=== PATIENT | male | born 1950 | race Caucasian/White ===

== ENCOUNTER → 2016-11-20 | Outpatient (CLI) | payer BC ==
[2016-11-20 11:25] LABS: ALT 34 U/L (21-72); AST 17 U/L (17-59); Alkaline Phosphatase 85 U/L (38-126); Anion Gap 12 mmol/L; Blood Urea Nitrogen 20 mg/dL (9-20); Calcium 9.1 mg/dL (8.4-10.2); Carbon Dioxide 30 mmol/L (22-30); Chloride 103 mmol/L (98-107); Cholesterol 167 mg/dL (<200); Glucose 104 mg/dL (74-99); HDL Cholesterol 53 mg/dL (40-60); Magnesium 2.1 mg/dL (1.6-2.3); Non-African American GFR(MDRD) >60 (>60 ml/min/1.73 sqM); Potassium 4.2 mmol/L (3.5-5.1); Sodium 145 mmol/L (137-145); Total Bilirubin 0.5 mg/dL (0.2-1.3); Total Protein 7.2 g/dL (6.3-8.2)
[2016-11-20 11:53] LABS: Prostate Specific Antigen 3.05 ng/mL (0.00-4.00)
== END | disposition home or self-care (01) ==
LOC: LABWHC1 09:09
PROVIDERS: ATTEND Family Medicine
DX: E78.5 Hyperlipidemia, unspecified (principal); E03.9 Hypothyroidism, unspecified
CPT/HCPCS: 36415; 80053; 80061; 83735; 84153; 84439; 84443

== ENCOUNTER → 2018-10-13 | Outpatient (CLI) | payer MEDICARE, OTHER ==
--- NOTE | 2018-10-13 22:31 | MR ---
EXAMINATION TYPE: MR brain wo/w con DATE OF EXAM: 10/13/2018 COMPARISON: MRI brain August 16, 2014. HISTORY: Diplopia TECHNIQUE: Multiplanar, multisequence images of the brain and brainstem is performed without and with IV contras t, utilizing 10 mL intravenous Gadavist . FINDINGS: Diffusion weighted images demonstrate no evidence of a recent infarct or other diffusion ab normality. There is no worrisome extra-axial fluid collection. There is diffuse ventricular and sulc al prominence redemonstrated. There are some scattered foci of T2 hyperintensities again seen through out the white matter bilaterally. Less than 10 scattered lesions are seen. Midline structures redemonstrated empty sella morphology. The craniocervical junction appears within normal limits. Post contrast images demonstrate no abnormal enhancement. The dural venous sinuses a ppear patent. The visualized sinuses are clear and the globes are intact. Nasal septum remains deviat ed to right of midline. IMPRESSION: Mild to moderate diffuse cerebral atrophy and mild chronic small vessel ischemic changes. No suspicious enhancement noted.
== END | disposition home or self-care (01) ==
LOC: RADMRIMAIN 14:25
PROVIDERS: ATTEND Ophthalmology
DX: G31.9 Degenerative disease of nervous system, unspecified (principal); I67.82 Cerebral ischemia
CPT/HCPCS: 70553; A9585

== ENCOUNTER 2020-09-29 11:53 | Emergency (ER) | payer MEDICARE ==
[2020-09-29 12:28] VITALS: RESP 18; TEMP 98.5
[2020-09-29 12:55] LABS: Appearance,Urine Clear (Clear); Bilirubin,Urine Negative (Negative); Blood,Urine Negative (Negative); Color,Urine Yellow; Glucose,Urine (UA) Negative (Negative); Ketones,Urine Negative (Negative); Leukocyte Esterase,Urine Negative (Negative); Nitrite,Urine Negative (Negative); Protein,Urine Negative (Negative); Specific Gravity,Urine 1.017 (1.001-1.035); Urobilinogen,Urine <2.0 mg/dL (<2.0)
--- NOTE | 2020-09-29 13:01 | XR ---
EXAMINATION TYPE: XR lumbar spine 2 or 3V DATE OF EXAM: 09/29/2020 CLINICAL HISTORY: pain TECHNIQUE: Three views of the lumbar spine are submitted. COMPARISON: None. FINDINGS: Curvature convex to the left. Severe multilevel degenerative disc space narrowing greatest at L5-S 1 and at T12-L1. Chronic loss of height L1. Grade 1 anterolisthesis L5 on S1 measuring 8.6 mm. Severe facet joint arthropathy. IMPRESSION: Advanced degenerative changes. Grade 1 anterolisthesis L5 on S1. Chronic loss of height L1.
[2020-09-29] MEDS ORDERED: KETOROLAC 15 MG/ML 1 ML VIAL IM STA (14:35)
[2020-09-29] MEDS ORDERED: ORPHENADRINE 30 MG/ML 2 ML VIAL IM STA (14:35)
--- NOTE | 2020-09-29 14:42 | ED ---
General Adult HPI - General Chief complaint: Back Pain/Injury Stated complaint: Back pain/burning Time Seen by Provider: 09/29/20 14:00 Source: patient, RN notes reviewed, old records reviewed Mode of arrival: wheelchair Limitations: no limitations - History of Present Illness Initial comments: This is a 69-year-old male who presents emergency Department stating that on Wednesday he did a lot more work house painting and putting up shelving. Patient states on Wednesday morning he woke up and he was having some paraspinous pain on the left lower back. Patient states he has no numbness or weakness. Patient denies any urinary continence urinary retention. Patient denies any abdominal pain. Patient denies any pain on the right side. Patient states bending or twisting makes it worse he states if he goes in the hot tub makes it much better. - Related Data Home Medications Medication Instructions Recorded Confirmed Aspirin 81 mg PO DAILY 08/28/13 01/14/14 Metoprolol Succinate [Toprol XL] 50 mg PO DAILY 08/28/13 01/14/14 Simvastatin [Zocor] 20 mg PO HS 08/28/13 01/14/14 Potassium Gluconate [Potassium 99 mg PO DAILY 12/14/13 01/14/14 Gluconate ER] Lisinopril-Hctz 20-25 mg 1 each PO DAILY 01/14/14 01/14/14 [Zestoretic 20-25] Metoprolol Succinate (ER) [Toprol 25 mg PO HS 01/14/14 01/14/14 XL] Previous Rx's Medication Instructions Recorded Levothyroxine Sodium [Synthroid] 137 mcg PO DAILY #0 01/15/14 Cyclobenzaprine [Flexeril] 10 mg PO TID #20 tab 09/29/20 Ketorolac [Toradol] 10 mg PO Q6HR #15 tab 09/29/20 Allergies Allergy/AdvReac Type Severity Reaction Status Date / Time No Known Allergies Allergy Verified 01/14/14 18:19 Review of Systems ROS Statement: Those systems with pertinent positive or pertinent negative responses have been documented in the HPI. ROS Other: All systems not noted in ROS Statement are negative. Past Medical History Past Medical History: Atrial Fibrillation, Hypertension, Prostate Disorder, Thyroid Disorder Additional Past Medical History / Comment(s): FREQUENT PVCS, hypothyroid, genital herpes History of Any Multi-Drug Resistant Organisms: None Reported Past Surgical History: Heart Catheterization With Stent, Orthopedic Surgery, Tonsillectomy Additional Past Surgical History / Comment(s): knee,shoulder, and wrist Past Anesthesia/Blood Transfusion Reactions: No Reported Reaction Date of Last Stent Placement:: 1998 Past Psychological History: No Psychological Hx Reported Past Alcohol Use History: None Reported Past Drug Use History: None Reported - Past Family History Mother Family Medical History: Asthma, COPD, Coronary Artery Disease (CAD), Diabetes Mellitus Additional Family Medical History / Comment(s): at 75yrs old, polyps in colon, colostomy bag Father Family Medical History: Myocardial Infarction ([place]) Additional Family Medical History / Comment(s): with a heart attack General Exam - General Exam Comments Initial Comments: GENERAL: Patient is well-developed and well-nourished. Patient is nontoxic and well- hydrated and is in mild distress. ENT: Neck is soft and supple. No significant lymphadenopathy is noted. Oropharynx is clear. Moist mucous membranes. Neck has full range of motion without eliciting any pain. EYES: The sclera were anicteric and conjunctiva were pink and moist. Extraocular movements were intact and pupils were equal round and reactive to light. Eyelids were unremarkable. ABDOMEN Soft and nontender with normal bowel sounds. SKIN: Skin is clear with no lesions or rashes and otherwise unremarkable. NEUROLOGIC: Patient is alert and oriented x3. Cranial nerves II through XII are grossly intact. Motor and sensory are also intact. Normal speech, volume and content. Symmetrical smile. Straight leg test is negative bilaterally MUSCULOSKELETAL: Normal extremities with adequate strength and full range of motion. Patient has some tenderness in the paraspinous muscles on the lower left back. PSYCHIATRIC: Normal psychiatric evaluation. Limitations: no limitations Course Vital Signs 09/29/20 12:23 Temperature 98.5 F Pulse Rate 61 Respiratory 18 Rate Blood Pressure 163/80 O2 Sat by Pulse 97 Oximetry Medical Decision Making - Medical Decision Making Lumbosacral shows no acute injury. - Lab Data Lab Results 09/29/20 Range/Units 12:34 Urine Color Yellow Urine Appearance Clear (Clear) Urine pH 7.0 (5.0-8.0) Ur Specific [place] 1.017 (1.001-1.035) Urine Protein Negative (Negative) Urine Glucose (UA) Negative (Negative) Urine Ketones Negative (Negative) Urine Blood Negative (Negative) Urine Nitrite Negative (Negative) Urine Bilirubin Negative (Negative) Urine Urobilinogen <2.0 (<2.0) mg/dL Ur Leukocyte Esterase Negative (Negative) Disposition Clinical Impression: Lumbosacral strain Disposition: HOME SELF-CARE Condition: Good Instructions (If sedation given, give patient instructions): Acute Low Back Pain (ED), Low Back Strain (ED) Prescriptions: Cyclobenzaprine [Flexeril] 10 mg PO TID #20 tab Ketorolac [Toradol] 10 mg PO Q6HR #15 tab Is patient prescribed a controlled substance at d/c from ED?: No Referrals: Curtis Camargo DO [Primary Care Provider] - 1-2 days Time of Disposition: 14:41
[2020-09-29 15:04] VITALS: BP 173/93; PULSE 59
== END 2020-09-29 15:02 | disposition home or self-care (01) ==
LOC: EC 11:53
DX: S39.012A Strain of muscle, fascia and tendon of lower back, initial encounter (principal); I10 Essential (primary) hypertension; I48.91 Unspecified atrial fibrillation; E03.9 Hypothyroidism, unspecified; Z79.82 Long term (current) use of aspirin; Z79.1 Long term (current) use of non-steroidal anti-inflammatories (NSAID); Z79.890 Hormone replacement therapy; Z79.899 Other long term (current) drug therapy; Z83.3 Family history of diabetes mellitus; Z82.49 Family history of ischemic heart disease and other diseases of the circulatory system; X50.1XXA Overexertion from prolonged static or awkward postures, initial encounter
CPT/HCPCS: 81003; 72100; 96372 ×2; 99283; J2360; J1885

== ENCOUNTER → 2021-06-19 | Outpatient (CLI) | payer MEDICARE ==
--- NOTE | 2021-06-19 16:01 | US ---
EXAMINATION TYPE: US abdomen complete DATE OF EXAM: 06/19/2021 COMPARISON: NONE CLINICAL HISTORY: 70-year-old male Rt upper quadrant pain R10.11. Intermittent abdomen pain x 6 month s TECHNIQUE: Multiple sonographic images of the abdomen are obtained. FINDINGS: EXAM MEASUREMENTS: Liver Length: 14.8 cm Gallbladder Wall: 0.3 cm CBD: 0.3 cm Spleen: Unable to adequately visualize due to bowel gas shadowing. Right Kidney: 9.3 x 4.2 x 4.8 cm Left Kidney: 11.7 x 5.0 x 5.2 cm Elect Equip Maint Eng notes:Difficult and limited due to patient body habitus Pancreas: limited by overlying midline bowel gas. Most of the body is seen and appears grossly unrem arkable. Liver: Coarse with increased echogenicity. 3.2 x 2.9cm cyst right lobe Gallbladder: wnl Evidence for sonographic Macias's sign: no CBD: visualized portions wnl, limited by overlying bowel gas Spleen: obscured by overlying midline bowel gas Right Kidney: wnl Left Kidney: wnl Upper IVC: wnl Abd Aorta: proximal portion obscured by overlying midline bowel gas, mid and distal portions appear wnl IMPRESSION: 1. Echogenic liver parenchyma. Correlate for hepatic steatosis with LFTs, lipid profile, and patient risk factors. 2. No gallstones or biliary ductal dilatation. 3. Pancreas and spleen obscured by bowel gas and could not be assessed.
== END | disposition home or self-care (01) ==
LOC: RADUSWWP 09:33
PROVIDERS: ATTEND Internal Medicine Gastroenterology
DX: R10.11 Right upper quadrant pain (principal)
CPT/HCPCS: 76700

== ENCOUNTER 2021-08-14 10:41 | Emergency (ER) | payer MEDICARE ==
[2021-08-14 10:52] VITALS: TEMP 98.3
[2021-08-14] MEDS ORDERED: SODIUM CHLORIDE 0.9% 1,000 ML IV STA (11:21)
[2021-08-14] MEDS ORDERED: ONDANSETRON 4 MG/2 ML VIAL IVP STA (11:21)
[2021-08-14] MEDS ORDERED: MORPHINE SULFATE 4 MG/ML SYRINGE IV STA (11:21)
[2021-08-14] MEDS ORDERED: diphenhydrAMINE 50 MG/ML 1 ML VIAL IVP STA (11:21)
[2021-08-14 12:09] LABS: Basophils # (A) 0.1 k/uL (0-0.2); Basophils % (A) 1 %; Eosinophils # (A) 0.2 k/uL (0-0.7); Eosinophils % (A) 1 %; HCT 48.3 % (39.0-53.0); HGB 16.6 gm/dL (13.0-17.5); Lymphocytes % (A) 17 %; MCH 33.5 pg (25.0-35.0); MCHC 34.3 g/dL (31.0-37.0); MCV 97.7 fL (80.0-100.0); Mean Platelet Volume 11.5; Monocytes # (A) 0.8 k/uL (0-1.0); Monocytes % (A) 6 %; Neutrophils # (A) 8.9 k/uL (1.3-7.7); Neutrophils % (A) 73 %; Platelet Count 131 k/uL (150-450); RBC 4.95 m/uL (4.30-5.90); RDW 12.7 % (11.5-15.5); WBC 12.2 k/uL (3.8-10.6)
[2021-08-14 12:30] LABS: Appearance,Urine Clear (Clear); Bilirubin,Urine Negative (Negative); Blood,Urine Negative (Negative); Color,Urine Yellow; Glucose,Urine (UA) Negative (Negative); Ketones,Urine Negative (Negative); Leukocyte Esterase,Urine Negative (Negative); Nitrite,Urine Negative (Negative); PH, Urine 6.5 (5.0-8.0); Protein,Urine Negative (Negative); Specific Gravity,Urine 1.017 (1.001-1.035); Urobilinogen,Urine <2.0 mg/dL (<2.0)
--- NOTE | 2021-08-14 12:48 | XR ---
EXAMINATION TYPE: XR chest 1V portable DATE OF EXAM: 08/14/2021 COMPARISON: Chest x-ray dated 01/14/2014 HISTORY: Abdominal pain TECHNIQUE: Single frontal view of the chest is obtained. FINDINGS: There is no focal air space opacity, pleural effusion, or pneumothorax seen. The cardiac silhouette size is within normal limits. Prominence of the aortic knob is present, the aorta is dense . The osseous structures are intact, there is thoracic spondylosis. IMPRESSION: No acute process. Possible aortic aneurysm.
--- NOTE | 2021-08-14 12:54 | XR ---
KUB HISTORY: Left-sided abdominal pain Frontal KUB and 2 images There is no evident bowel obstruction or pneumoperitoneum. There is a scoliotic curvature of the spin e, thoracic lumbar spondylosis is present. Vascular calcifications are present. Suspect some arthropa thy in the hips. Air-fluid levels without bowel distention noted. Lung bases are remarkable for some questionable increased attenuation at the left costophrenic angle. IMPRESSION: There could be underlying ileus or enteritis, follow-up as indicated. Difficult to exclud e airspace disease at the left costophrenic angle.
--- NOTE | 2021-08-14 13:44 | US ---
EXAMINATION TYPE: US renals and bladder DATE OF EXAM: 08/14/2021 COMPARISON: US 2021 CLINICAL HISTORY: eval for hydronephrosis. Left flank pain x couple weeks EXAM MEASUREMENTS: Right Kidney: 11.2 x 5.0 x 5.3 cm Left Kidney: 12.0 x 5.7 x 4.8 cm Difficult and limited study due to patient body habitus Right Kidney: 2.1cm cystic area medial mid pole, probable extrarenal pelvis is noted. Left Kidney: wnl Bladder: wnl Bilateral Jets seen: yes There is no evidence for hydronephrosis at this point in time. No nephrolithiasis is seen. Cortical medullary differentiation is maintained. Extrarenal pelvis suspected on the right. No masses are simon ntified. The urinary bladder is anechoic. Inferior impression on the bladder due to the prostate is noted. Bilateral ureteral jets are seen. IMPRESSION: No evident hydronephrosis. 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 Additiona l findings above.
[2021-08-14 13:59] LABS: Albumin 4.4 g/dL (3.5-5.0); Calcium 8.5 mg/dL (8.4-10.2); Potassium 3.5 mmol/L (3.5-5.1); Total Bilirubin 0.5 mg/dL (0.2-1.3); Total Protein 7.4 g/dL (6.3-8.2)
[2021-08-14] MEDS ORDERED: MORPHINE SULFATE 4 MG/ML SYRINGE IVP STA (14:01)
--- NOTE | 2021-08-14 14:14 | ED ---
General Adult HPI - General Chief complaint: Arrhythmia/Palpitations Stated complaint: Back pain/heart flutter Time Seen by Provider: 08/14/21 10:54 Source: patient, RN notes reviewed, old records reviewed Mode of arrival: ambulatory Limitations: no limitations - History of Present Illness Initial comments: Patient is a 70-year-old male with past medical history remarkable for hypertension, prostate disorder, thyroid disorder, atrial fibrillation/flutter who presents emergency Department complaining of persistent left-sided flank pain as well as a feeling of heart palpitations earlier today. States that the palpitations began last night earlier this morning. They have resolved. He is uncertain if it is related to the pain. Denied any chest pain, shortness breath. Currently is not having them. Does endorse some left-sided flank pain which feels a burning sensation that radiates from the left posterior axillary line near the left CVA around to the anterior abdomen. Prescription it is burning. Relieved when pressure is placed on it. Worse when standing. Denies any other acute complaints including nausea, vomiting, diarrhea. Denies any urinary complaints. Is uncertain what is causing his current pain. Was seen by PCP and started on muscle relaxers and steroids with minimal improvement. Presents for further evaluation at this time. Denies any new trauma. Does have a follow-up appointment with Dr. Solano at the end of this month. - Related Data Home Medications Medication Instructions Recorded Confirmed Aspirin 81 mg PO DAILY 08/28/13 01/14/14 Metoprolol Succinate [Toprol XL] 50 mg PO DAILY 08/28/13 01/14/14 Simvastatin [Zocor] 20 mg PO HS 08/28/13 01/14/14 Potassium Gluconate [Potassium 99 mg PO DAILY 12/14/13 01/14/14 Gluconate ER] Lisinopril-Hctz 20-25 mg 1 each PO DAILY 01/14/14 01/14/14 [Zestoretic 20-25] Metoprolol Succinate (ER) [Toprol 25 mg PO HS 01/14/14 01/14/14 XL] Previous Rx's Medication Instructions Recorded Levothyroxine Sodium [Synthroid] 137 mcg PO DAILY #0 01/15/14 Cyclobenzaprine [Flexeril] 10 mg PO TID #20 tab 09/29/20 Ketorolac [Toradol] 10 mg PO Q6HR #15 tab 09/29/20 Gabapentin [Neurontin] 300 mg PO Q8HR PRN 7 Days #21 cap 08/14/21 Lidocaine 5% Patch [Lidoderm 5% 1 patch TOPICAL DAILY PRN 7 Days 08/14/21 Patch] #7 patch methocarbamoL [Robaxin] 1,000 mg PO BID PRN 7 Days #14 tab 08/14/21 Allergies Allergy/AdvReac Type Severity Reaction Status Date / Time No Known Allergies Allergy Verified 08/14/21 10:52 Review of Systems ROS Statement: Those systems with pertinent positive or pertinent negative responses have been documented in the HPI. Review of Systems: CONST: Denies fever EYES: Denies blurry vision ENT: Denies nasal congestion C/V: Denies Chest pain RESP: Denies shortness of breath GI: Endorses right sided flank pain/abdominal pain : Denies dysuria SKIN: Denies rash. MSK: Denies joint pain. NEURO: Denies headache ROS Other: All systems not noted in ROS Statement are negative. Past Medical History Past Medical History: Atrial Fibrillation, Hypertension, Prostate Disorder, Thyroid Disorder Additional Past Medical History / Comment(s): FREQUENT PVCS, hypothyroid, [place] mitra herpes History of Any Multi-Drug Resistant Organisms: None Reported Past Surgical History: Heart Catheterization With Stent, Orthopedic Surgery, T onsillectomy Additional Past Surgical History / Comment(s): knee,shoulder, and wrist Past Anesthesia/Blood Transfusion Reactions: No Reported Reaction Date of Last Stent Placement:: 1998 Past Psychological History: No Psychological Hx Reported Past Alcohol Use History: None Reported Past Drug Use History: None Reported - Past Family History Mother Family Medical History: Asthma, COPD, Coronary Artery Disease (CAD), Diabetes Mellitus Additional Family Medical History / Comment(s): at 75yrs old, polyps in colon, colostomy bag Father Family Medical History: Myocardial Infarction ([place]) Additional Family Medical History / Comment(s): with a heart attack General Exam - General Exam Comments Initial Comments: General: Appears in no acute distress. HEAD: Normal with no signs of head trauma. EYES: PERRLA, EOMI, conjunctiva normal, no discharge. ENT: Hearing grossly intact, normal oropharynx. RESPIRATORY: Clear breath sounds bilaterally. No wheezes, rales, or rhonchi. C/V: Regular rate and rhythm. S1 and S2 auscultated, no edema, peripheral pulses 2+ and intact throughout ABD: Abdomen is soft, nondistended. Mild tenderness to palpation over the left side and left flank. No CVA tenderness to percussion. No guarding. No rebound tenderness. Pain radiates to left mid quadrant. EXT: Normal range of motion, no obvious deformity SKIN: No rashes or lesions observed on exposed skin. NEURO: Alert and oriented x 4. Cranial nerves II-XII intact. No focal sensory or strength deficits. Limitations: no limitations Course Vital Signs 08/14/21 08/14/21 10:48 14:00 Temperature 98.3 F Pulse Rate 83 59 L Respiratory 18 16 Rate Blood Pressure 104/77 117/68 O2 Sat by Pulse 99 95 Oximetry Medical Decision Making - Medical Decision Making Based on the patient's presentation and physical exam, I'm concerned for acute intra-abdominal process for his current symptoms. Also be a muscle strain. The burning sensation as well as the radiation of the pain could be related to a radiculopathy as well. However cannot rule out nephrolithiasis. We will obtain basic laboratory studies to begin as well as an abdominal and chest x-ray and renal ultrasound. He'll be symptomatically treated. Patient was in agreement this plan. EKG shows no signs of acute ischemia. Lab studies are remarkable for a mild leukocytosis of 12.2. Troponin is undetectable. Urine is clear without blood. KUB revealed possible underlying ileus or enteritis, but difficult exam. Chest x-ray reveals no acute process. They documented as possible prominence of the aortic knob but on prior chest x-ray, there is no difference from 2014. I discussed with the patient results of his laboratory studies and imaging. Recommended CT of the pelvis to exclude intra-abdominal process. Patient was in agreement this plan. Was redosed pain medications at this time. Vital signs remained within normal limits and stable. CT revealed left renal cysts, right inguinal hernia containing mesenteric fat, as well as mild fusiform prominence of the distal abdominal aorta at the bifurcation. I discussed the findings with the patient. I informed him of the slight fusiform dilation of the aorta, and recommended repeat imaging outpatient throughout aortic aneurysm. He stressed understanding. Expressed understanding of findings of the cyst as well as the hernia which is known to him. We discussed at length that his symptoms are likely secondary to muscular skeletal in nature. I do not believe he requires admission at this time. Will be given all medications to manage them. Will be trialed on a one-week supply of gabapentin. He was in agreement this plan. Already has follow-up arranged with orthopedic underwriting specialist, Dr. Solano. Patient was in agreement with this plan. Vital signs remained within normal limits at this time. I stressed to him that I am not diagnosing him with a aortic abdominal aneurysm, however we'll provide him with information on it and his discharge paperwork. I will provide the patient with a prescription for Robaxin, lidocaine patches, gabapentin for one week. I instructed the patient to follow up with their PCP in the next 3 days. I explained that the patient should return to the emergency department if they experience any worsening symptoms. Strict return precautions were discussed with the patient. The patient expressed understanding of these instructions. I answered all questions that the patient had. The patient was discharged home in fair condition with their prescriptions and follow up information. - Lab Data Result diagrams: 08/14/21 12:01 08/14/21 13:30 Lab Results 08/14/21 08/14/21 08/14/21 Range/Units 12:00 12:01 13:30 WBC 12.2 H (3.8-10.6) k/uL RBC 4.95 (4.30-5.90) m/uL Hgb 16.6 (13.0-17.5) gm/dL Hct 48.3 (39.0-53.0) % MCV 97.7 (80.0-100.0) fL MCH 33.5 (25.0-35.0) pg MCHC 34.3 (31.0-37.0) g/dL RDW 12.7 (11.5-15.5) % Plt Count 131 L (150-450) k/uL MPV 11.5 Neutrophils % 73 % Lymphocytes % 17 % Monocytes % 6 % Eosinophils % 1 % Basophils % 1 % Neutrophils # 8.9 H (1.3-7.7) k/uL Lymphocytes # 2.0 (1.0-4.8) k/uL Monocytes # 0.8 (0-1.0) k/uL Eosinophils # 0.2 (0-0.7) k/uL Basophils # 0.1 (0-0.2) k/uL Sodium (137-145) mmol/L Potassium (3.5-5.1) mmol/L Chloride (98-107) mmol/L Carbon Dioxide (22-30) mmol/L Anion Gap mmol/L BUN (9-20) mg/dL Creatinine (0.66-1.25) mg/dL Est GFR (CKD-EPI)AfAm (>60 ml/min/1.73 sqM) Est GFR (CKD-EPI)NonAf (>60 ml/min/1.73 sqM) Glucose (74-99) mg/dL Plasma Lactic Acid Jed 1.6 (0.7-2.0) mmol/L Calcium (8.4-10.2) mg/dL Total Bilirubin (0.2-1.3) mg/dL AST (17-59) U/L ALT (4-49) U/L Alkaline Phosphatase (38-126) U/L Troponin I (0.000-0.034) ng/mL Total Protein (6.3-8.2) g/dL Albumin (3.5-5.0) g/dL Amylase (30-110) U/L Lipase (23-300) U/L Urine Color Yellow Urine Appearance Clear (Clear) Urine pH 6.5 (5.0-8.0) Ur Specific [place] 1.017 (1.001-1.035) Urine Protein Negative (Negative) Urine Glucose (UA) Negative (Negative) Urine Ketones Negative (Negative) Urine Blood Negative (Negative) Urine Nitrite Negative (Negative) Urine Bilirubin Negative (Negative) Urine Urobilinogen <2.0 (<2.0) mg/dL Ur Leukocyte Esterase Negative (Negative) 08/14/21 08/14/21 Range/Units 13:30 13:30 WBC (3.8-10.6) k/uL RBC (4.30-5.90) m/uL Hgb (13.0-17.5) gm/dL Hct (39.0-53.0) % MCV (80.0-100.0) fL MCH (25.0-35.0) pg MCHC (31.0-37.0) g/dL RDW (11.5-15.5) % Plt Count (150-450) k/uL MPV Neutrophils % % Lymphocytes % % Monocytes % % Eosinophils % % Basophils % % Neutrophils # (1.3-7.7) k/uL Lymphocytes # (1.0-4.8) k/uL Monocytes # (0-1.0) k/uL Eosinophils # (0-0.7) k/uL Basophils # (0-0.2) k/uL Sodium 138 (137-145) mmol/L Potassium 3.5 (3.5-5.1) mmol/L Chloride 99 (98-107) mmol/L Carbon Dioxide 31 H (22-30) mmol/L Anion Gap 8 mmol/L BUN 27 H (9-20) mg/dL Creatinine 1.07 (0.66-1.25) mg/dL Est GFR (CKD-EPI)AfAm 83 (>60 ml/min/1.73 sqM) Est GFR (CKD-EPI)NonAf 72 (>60 ml/min/1.73 sqM) Glucose 106 H (74-99) mg/dL Plasma Lactic Acid Jed (0.7-2.0) mmol/L Calcium 8.5 (8.4-10.2) mg/dL Total Bilirubin 0.5 (0.2-1.3) mg/dL AST 24 (17-59) U/L ALT 45 (4-49) U/L Alkaline Phosphatase 84 (38-126) U/L Troponin I <0.012 (0.000-0.034) ng/mL Total Protein 7.4 (6.3-8.2) g/dL Albumin 4.4 (3.5-5.0) g/dL Amylase 59 (30-110) U/L Lipase 154 (23-300) U/L Urine Color Urine Appearance (Clear) Urine pH (5.0-8.0) Ur Specific [place] (1.001-1.035) Urine Protein (Negative) Urine Glucose (UA) (Negative) Urine Ketones (Negative) Urine Blood (Negative) Urine Nitrite (Negative) Urine Bilirubin (Negative) Urine Urobilinogen (<2.0) mg/dL Ur Leukocyte Esterase (Negative) - EKG Data -: EKG Interpreted by Me EKG Comments: 12-lead Electrocardiogram Interpretation Note EKG was reviewed and interpreted by myself. 12-lead ECG performed at 12:15 is interpreted by me as revealing normal sinus rhythm at a rate of 82 beats per minute. [place] is normal. [place] intervals 186 ms, QRS duration is 108 ms, QTc is 399 ms.. There were no ST or T wave abnormalities to suggest myocardial ischemia or injury. R wave progression across the precordium was satisfactory. By my interpretation this EKG is non-diagnostic for acute ischemia. Disposition Clinical Impression: Heart palpitations, Abdominal pain of unknown etiology, Muscle strain Disposition: HOME SELF-CARE Condition: Fair Instructions (If sedation given, give patient instructions): Nonruptured Abdominal Aortic Aneurysm (DC), Abdominal Pain (ED) Additional Instructions: You have early possible signs of an abdominal aortic aneurysm. Follow up for repeat imaging in 6-12 months. Discuss with your PCP. Prescriptions: Lidocaine 5% Patch [Lidoderm 5% Patch] 1 patch TOPICAL DAILY PRN 7 Days #7 patch PRN Reason: Pain Gabapentin [Neurontin] 300 mg PO Q8HR PRN 7 Days #21 cap PRN Reason: Pain methocarbamoL [Robaxin] 1,000 mg PO BID PRN 7 Days #14 tab PRN Reason: Pain Is patient prescribed a controlled substance at d/c from ED?: Yes When asked, does pt state using other controlled substances?: No Referrals: Curtis Camargo DO [Primary Care Provider] - 1-2 days Time of Disposition: 14:50
--- NOTE | 2021-08-14 14:33 | CT ---
EXAMINATION TYPE: CT abdomen pelvis w con DATE OF EXAM: 08/14/2021 COMPARISON: None INDICATION: Abdominal pain DLP: 1608 mGycm, Automated exposure control for dose reduction was used. CONTRAST: 70 ml mL of Isovue 300. Study performed without Oral Contrast TECHNIQUE: Axial images were obtained from above the diaphragm to the pubic rami in the axial plane a t 5 mm thick sections. Reconstructed images are reviewed on the computer in the coronal plane. FINDINGS: Limited CT sections are obtained the lung bases. There is some mild thickening along left major fiss ure inferiorly. This could be related to fluid. Coronary artery calcification is noted.. CT ABDOMEN: Liver: There is a cyst at the inferior right tip of the liver. Spleen: Normal Pancreas: Normal Adrenal glands: The adrenal glands are normal. Gallbladder: Normal Kidneys: No masses are evident. No hydronephrosis is present. There is a 0.8 cm cyst in the anterio r medial lower left kidney cortex. Aorta: Vascular calcification is within the aorta. There is fusiform prominence of the distal abdomi nal aorta at the bifurcation. Iliac vessels appear normal Inferior vena cava: Normal. CT PELVIS: Right inguinal hernia containing mesenteric fat is evident. Multiple diverticular changes are within sigmoid colon. There are loops of bowel which are incomplete ly distended or lack oral contrast limiting their evaluation. Appendix: Normal as visualized. Urinary bladder: Normal. Genitourinary structures: Prostate appears somewhat prominent. Osseous structures: No suspicious lytic or sclerotic lesions. IMPRESSIONS: 1. Left renal cyst. 2. Right inguinal hernia containing mesenteric fat. 3. Mild fusiform prominence distal abdominal aorta at the bifurcation
[2021-08-14 14:38] VITALS: BP 117/68; PULSE 59; RESP 16
[2021-08-14] MEDS ORDERED: GABAPENTIN 300 MG CAP PO STA (14:59)
== END 2021-08-14 15:13 | disposition home or self-care (01) ==
LOC: EC 10:41
DX: R00.2 Palpitations (principal); R10.9 Unspecified abdominal pain; E11.9 Type 2 diabetes mellitus without complications; I10 Essential (primary) hypertension; J44.9 Chronic obstructive pulmonary disease, unspecified; E07.9 Disorder of thyroid, unspecified; Z79.899 Other long term (current) drug therapy
CPT/HCPCS: 36415; 93005; 80053; 82150; 83605; 83690; 84484; 85025; 81003; 71045; 74018; 76770; 74177; 99285; 96374; 96375; 96376; 96361; J2270; J1200; J2405; Q9967

== ENCOUNTER 2022-09-29 18:39 | Inpatient (IN) | payer MEDICARE ==
[2022-09-29 18:50] VITALS: RESP 18
[2022-09-29] MEDS ORDERED: ASPIRIN 81 MG PO STA (18:58)
--- NOTE | 2022-09-29 19:01 | ED ---
General Adult HPI - General Chief complaint: Arrhythmia/Palpitations Stated complaint: Palpitations Time Seen by Provider: 09/29/22 18:53 Source: patient, family, RN notes reviewed Mode of arrival: ambulatory Limitations: no limitations - History of Present Illness Initial comments: Patient is a pleasant [age]-year-old male presenting to the emergency department with concerns of palpitations. Onset of symptoms was a past couple of hours. Patient does have history of similar symptoms previously associated with atrial flutter. Patient is not currently on any anticoagulation. Patient felt his heart was going fast earlier. Now patient just feels that his heart is regular. No chest pain. No dyspnea. - Related Data Home Medications Medication Instructions Recorded Confirmed Aspirin 81 mg PO DAILY 08/28/13 01/14/14 Metoprolol Succinate [Toprol XL] 50 mg PO DAILY 08/28/13 01/14/14 Simvastatin [Zocor] 20 mg PO HS 08/28/13 01/14/14 Potassium Gluconate [Potassium 99 mg PO DAILY 12/14/13 01/14/14 Gluconate ER] Lisinopril-Hctz 20-25 mg 1 each PO DAILY 01/14/14 01/14/14 [Zestoretic 20-25] Metoprolol Succinate (ER) [Toprol 25 mg PO HS 01/14/14 01/14/14 XL] Previous Rx's Medication Instructions Recorded Levothyroxine Sodium [Synthroid] 137 mcg PO DAILY #0 01/15/14 Cyclobenzaprine [Flexeril] 10 mg PO TID #20 tab 09/29/20 Ketorolac [Toradol] 10 mg PO Q6HR #15 tab 09/29/20 Gabapentin [Neurontin] 300 mg PO Q8HR PRN 7 Days #21 cap 08/14/21 Lidocaine 5% Patch [Lidoderm 5% 1 patch TOPICAL DAILY PRN 7 Days 08/14/21 Patch] #7 patch methocarbamoL [Robaxin] 1,000 mg PO BID PRN 7 Days #14 tab 08/14/21 Allergies Allergy/AdvReac Type Severity Reaction Status Date / Time No Known Allergies Allergy Verified 08/14/21 10:52 Review of Systems ROS Statement: Those systems with pertinent positive or pertinent negative responses have been documented in the HPI. ROS Other: All systems not noted in ROS Statement are negative. Constitutional: Denies: fever Eyes: Denies: eye pain ENT: Denies: ear pain Respiratory: Denies: cough Cardiovascular: Reports: as per HPI, palpitations. Denies: chest pain Endocrine: Denies: fatigue Gastrointestinal: Denies: abdominal pain Genitourinary: Denies: dysuria Past Medical History Past Medical History: Atrial Fibrillation, Hypertension, Prostate Disorder, Thyroid Disorder Additional Past Medical History / Comment(s): FREQUENT PVCS, hypothyroid, genital herpes History of Any Multi-Drug Resistant Organisms: None Reported Past Surgical History: Heart Catheterization With Stent, Orthopedic Surgery, Tonsillectomy Additional Past Surgical History / Comment(s): knee,shoulder, and wrist Past Anesthesia/Blood Transfusion Reactions: No Reported Reaction Date of Last Stent Placement:: 1998 Past Psychological History: No Psychological Hx Reported Past Alcohol Use History: None Reported Past Drug Use History: None Reported - Past Family History Mother Family Medical History: Asthma, COPD, Coronary Artery Disease (CAD), Diabetes Mellitus Additional Family Medical History / Comment(s): at 75yrs old, polyps in colon, colostomy bag Father Family Medical History: Myocardial Infarction ([place]) Additional Family Medical History / Comment(s): with a heart attack General Exam Limitations: no limitations General appearance: alert, in no apparent distress Head exam: Present: normocephalic Eye exam: Present: normal appearance Neck exam: Present: normal inspection Respiratory exam: Present: normal lung sounds bilaterally Cardiovascular Exam: Present: tachycardia, irregular rhythm, normal heart sounds Expanded Peripheral pulses: 2+: Radial (R), Radial (L), Posterior Tibialis (R), Posterior Tibialis (L) GI/Abdominal exam: Present: soft. Absent: tenderness Extremities exam: Present: normal inspection. Absent: pedal edema, calf tenderness Neurological exam: Present: alert Psychiatric exam: Present: normal affect, normal mood Skin exam: Present: normal color Course Vital Signs 09/29/22 18:47 Temperature 98 F Pulse Rate 59 L Respiratory 18 Rate Blood Pressure 109/68 O2 Sat by Pulse 96 Oximetry EKG Findings - EKG Results: EKG: interpreted by ERMD (Left axis. Inferior Q waves.), normal ST/T EKG shows: tachycardia, atrial fibrillation Medical Decision Making - Medical Decision Making Was pt. sent in by a medical professional or institution (, PA, GREEN BUILDING ENGINEER, urgent care, hospital, or long term...) When possible be specific @ -No Did you speak to anyone other than the patient for history (EMS, parent, family, police, friend...)? What history was obtained from this source @ -No Did you review nursing and triage notes (agree or disagree)? Why? @ -I reviewed and agree with nursing and triage notes Were old charts reviewed (outside hosp., previous admission, EMS record, old EKG, old radiological studies, urgent care reports/EKG's, long term records)? Report findings @ -No old charts were reviewed Differential Diagnosis (chest pain, altered mental status, abdominal pain women, abdominal pain men, vaginal bleeding, weakness, fever, dyspnea, syncope, headache, dizziness, GI bleed, back pain, seizure, CVA, palpatations, mental health, musculoskeletal)? @ -Differential Palpitations Ventricular arrhythmias, atrial arrhythmias, myocardial infarction, anemia, thyrotoxicosis, electrolyte imbalance, hypokalemia, pulmonary embolism, pulmonary disease, drugs, alcohol, anxiety, stress.... This is not meant to be an all-inclusive list. EKG interpreted by me (3pts min.). @ -As above X-rays interpreted by me (1pt min.). @ -Chest x-ray shows no acute process CT interpreted by me (1pt min.). @ -None done U/S interpreted by me (1pt. min.). @ -None done What testing was considered but not performed or refused? (CT, X-rays, U/S, labs)? Why? @ -None What meds were considered but not given or refused? Why? @ -None Did you discuss the management of the patient with other professionals (professionals i.e. , PA, GREEN BUILDING ENGINEER, lab, RT, psych nurse, social media campaign manager, batch plant operator, teacher, records officer, community case manager)? Give summary @ -Case was discussed with Dr. Romero, who will admit covering hospital call. Was smoking cessation discussed for >3mins.? @ -No Was critical care preformed (if so, how long)? @ -33 minutes. critical care time Were there social determinants of health that impacted care today? How? (Homelessness, low income, unemployed, alcoholism, drug addiction, transportation, low edu. Level, literacy, decrease access to med. care, correction, rehab)? @ -No Was there de-escalation of care discussed even if they declined (Discuss DNR or withdrawal of care, Hospice)? DNR status @ -No What co-morbidities impacted this encounter? (DM, HTN, Smoking, COPD, CAD, Cancer, CVA, ARF, Chemo, Hep., AIDS, mental health diagnosis, sleep apnea, morbid obesity)? @ -None Was patient admitted / discharged? Hospital course, mention meds given and route, prescriptions, significant lab abnormalities, going to OR and other pertinent info. @ -Patient reevaluated and resting comfortable in bed. Heart rate varies between 98 and 125. Patient and family updated on results and plan. Patient will be admitted. Admission orders written. Undiagnosed new problem with uncertain prognosis? @ -No Drug Therapy requiring intensive monitoring for toxicity (Heparin, Nitro, Insulin, Cardizem)? @ - is on Cardizem drip and will be added heparin drip for monitoring. Were any procedures done? @ -No Diagnosis/symptom? @ -A A. fib with RVR Acute, or Chronic, or Acute on Chronic? @ -Acute on chronic Uncomplicated (without systemic symptoms) or Complicated (systemic symptoms)? @ -default Side effects of treatment? @ -No Exacerbation, Progression, or Severe Exacerbation? @ -No Poses a threat to life or bodily function? How? (Chest pain, [place], [place], pneumonia, PE, COPD, DKA, ARF, appy, cholecystitis, CVA, Diverticulitis, Homicidal, Suicidal, threat to staff... and all critical care pts) @ -No - Lab Data Result diagrams: 09/29/22 19:24 09/29/22 19:24 Lab Results 09/29/22 09/29/22 09/29/22 Range/Units 19:24 19:24 19:24 WBC 8.4 (3.8-10.6) k/uL RBC 4.08 L (4.30-5.90) m/uL Hgb 13.6 (13.0-17.5) gm/dL Hct 40.0 (39.0-53.0) % MCV 98.0 (80.0-100.0) fL MCH 33.2 (25.0-35.0) pg MCHC 33.9 (31.0-37.0) g/dL RDW 12.7 (11.5-15.5) % Plt Count 139 L (150-450) k/uL MPV 10.1 Neutrophils % 68 % Lymphocytes % 22 % Monocytes % 6 % Eosinophils % 2 % Basophils % 0 % Neutrophils # 5.7 (1.3-7.7) k/uL Lymphocytes # 1.9 (1.0-4.8) k/uL Monocytes # 0.5 (0-1.0) k/uL Eosinophils # 0.1 (0-0.7) k/uL Basophils # 0.0 (0-0.2) k/uL PT 11.5 (9.0-12.0) sec INR 1.1 (<1.2) APTT 23.1 (22.0-30.0) sec Sodium 140 (137-145) mmol/L Potassium 3.6 (3.5-5.1) mmol/L Chloride 103 (98-107) mmol/L Carbon Dioxide 28 (22-30) mmol/L Anion Gap 9 mmol/L BUN 22 H (9-20) mg/dL Creatinine 0.80 (0.66-1.25) mg/dL Est GFR (CKD-EPI)AfAm >90 (>60 ml/min/1.73 sqM) Est GFR (CKD-EPI)NonAf >90 (>60 ml/min/1.73 sqM) Glucose 129 H (74-99) mg/dL Calcium 8.8 (8.4-10.2) mg/dL Magnesium 2.1 (1.6-2.3) mg/dL Total Bilirubin 0.4 (0.2-1.3) mg/dL AST 28 (17-59) U/L ALT 25 (4-49) U/L Alkaline Phosphatase 74 (38-126) U/L Troponin I (0.000-0.034) ng/mL Total Protein 7.1 (6.3-8.2) g/dL Albumin 4.1 (3.5-5.0) g/dL 09/29/22 Range/Units 19:24 WBC (3.8-10.6) k/uL RBC (4.30-5.90) m/uL Hgb (13.0-17.5) gm/dL Hct (39.0-53.0) % MCV (80.0-100.0) fL MCH (25.0-35.0) pg MCHC (31.0-37.0) g/dL RDW (11.5-15.5) % Plt Count (150-450) k/uL MPV Neutrophils % % Lymphocytes % % Monocytes % % Eosinophils % % Basophils % % Neutrophils # (1.3-7.7) k/uL Lymphocytes # (1.0-4.8) k/uL Monocytes # (0-1.0) k/uL Eosinophils # (0-0.7) k/uL Basophils # (0-0.2) k/uL PT (9.0-12.0) sec INR (<1.2) APTT (22.0-30.0) sec Sodium (137-145) mmol/L Potassium (3.5-5.1) mmol/L Chloride (98-107) mmol/L Carbon Dioxide (22-30) mmol/L Anion Gap mmol/L BUN (9-20) mg/dL Creatinine (0.66-1.25) mg/dL Est GFR (CKD-EPI)AfAm (>60 ml/min/1.73 sqM) Est GFR (CKD-EPI)NonAf (>60 ml/min/1.73 sqM) Glucose (74-99) mg/dL Calcium (8.4-10.2) mg/dL Magnesium (1.6-2.3) mg/dL Total Bilirubin (0.2-1.3) mg/dL AST (17-59) U/L ALT (4-49) U/L Alkaline Phosphatase (38-126) U/L Troponin I <0.012 (0.000-0.034) ng/mL Total Protein (6.3-8.2) g/dL Albumin (3.5-5.0) g/dL Critical Care Time Critical Care Time: Yes Total Critical Care Time: 33 Disposition Clinical Impression: Atrial fibrillation, Tachycardia Disposition: ADMITTED IP TO THIS HOSP Is patient prescribed a controlled substance at d/c from ED?: No Referrals: None,Stated [Primary Care Provider] - 1-2 days Time of Disposition: 20:23
[2022-09-29] MEDS ORDERED: DILTIAZEM 125 MG in SODIUM CHLORIDE 0.9% 100 ML IV SCH (19:15)
--- NOTE | 2022-09-29 19:40 | XR ---
EXAMINATION TYPE: XR chest 2V DATE OF EXAM: 09/29/2022 COMPARISON: 12/15/2021 HISTORY: Shortness of breath TECHNIQUE: Frontal and lateral views of the chest are obtained. FINDINGS: Scattered senescent parenchymal changes noted. Hyperinflation compatible with COPD. No evidence for infiltrate. No evidence for atelectasis. Heart size is stable. Mediastinal structures are stable and grossly unremarkable. No evidence for hilar prominence. Degenerative changes dorsal spine. IMPRESSION: 1. No evidence for acute pulmonary disease.
[2022-09-29 19:52] LABS: Basophils % (A) 0 %; Eosinophils # (A) 0.1 k/uL (0-0.7); Eosinophils % (A) 2 %; HGB 13.6 gm/dL (13.0-17.5); Lymphocytes # (A) 1.9 k/uL (1.0-4.8); Lymphocytes % (A) 22 %; MCH 33.2 pg (25.0-35.0); MCHC 33.9 g/dL (31.0-37.0); Mean Platelet Volume 10.1; Monocytes # (A) 0.5 k/uL (0-1.0); Monocytes % (A) 6 %; Neutrophils # (A) 5.7 k/uL (1.3-7.7); Neutrophils % (A) 68 %; Platelet Count 139 k/uL (150-450); RBC 4.08 m/uL (4.30-5.90); RDW 12.7 % (11.5-15.5); WBC 8.4 k/uL (3.8-10.6)
[2022-09-29 20:02] LABS: INR 1.1 (<1.2); Partial Thromboplastin Time 23.1 sec (22.0-30.0); Prothrombin Time 11.5 sec (9.0-12.0)
[2022-09-29 20:08] LABS: ALT 25 U/L (4-49); AST 28 U/L (17-59); African American GFR (CKD) >90 (>60 ml/min/1.73 sqM); Albumin 4.1 g/dL (3.5-5.0); Alkaline Phosphatase 74 U/L (38-126); Anion Gap 9 mmol/L; Blood Urea Nitrogen 22 mg/dL (9-20); Calcium 8.8 mg/dL (8.4-10.2); Carbon Dioxide 28 mmol/L (22-30); Chloride 103 mmol/L (98-107); Glucose 129 mg/dL (74-99); Magnesium 2.1 mg/dL (1.6-2.3); Non-African American GFR(CKD) >90 (>60 ml/min/1.73 sqM); Potassium 3.6 mmol/L (3.5-5.1); Sodium 140 mmol/L (137-145); Total Bilirubin 0.4 mg/dL (0.2-1.3); Total Protein 7.1 g/dL (6.3-8.2)
[2022-09-29 20:24] LABS: T4, Free (Free Thyroxine) 1.08 ng/dL (0.78-2.19)
[2022-09-29] MEDS ORDERED: HEPARIN SODIUM 1,000 UN/ML (10ML VL) IV ONE (20:24)
[2022-09-29] MEDS ORDERED: HEPARIN SOD,PORK IN 0.45% NACL 25,000 UNIT in 0.45% NACL 1 250ML.BAG IV SCH (20:30)
--- NOTE | 2022-09-30 02:58 | P.HPIM ---
History of Present Illness H&P Date: 09/29/22 Chief Complaint: Palpitations 71-year-old male with hypertension, A flutter Is coming in for 2 hours of palpitations denies any associated dizziness lightheadedness shortness of breath or chest pain. Reports that he has history of a flutter and he would get very short-lived episodes of palpitation may be once every few months. Is very active at baseline goes to gym every day does some cardio and weightlifting with no limitations however today he noticed episodes of palpitations while working in his garage was not associated with any shortness of breath dizziness lightheadedness or chest pain no nausea no vomiting no fevers no chills no cough. However he does recall having recently diagnosed with Covid he had generalized weakness and easy fatigability this was recent however he repeated the test about a week ago and he was negative but he still recovering. This time he decided to come in for evaluation as his palpitations persisted despite taking an extra dose of Lopressor with no improvement as it continued for over 2 hours he decided to come in for evaluation Patient denies any recent traveling history of blood clots he denies being on any blood thinners he takes aspirin Denies tobacco smoking and illicit drugs or alcohol review of systems Pertinent positives as noted in HPI. All other systems were reviewed and are negative on exam Constitutional: No acute distress, conversant, pleasant Eyes: Anicteric sclerae, moist conjunctiva, Pupils equal round reactive to light ENMT: NC/AT Oropharynx clear, no erythema, or exudates Neck: Supple, no masses, or JVD No carotid bruits No thyromegaly Lungs: Clear to auscultation Clear to percussion Normal respiratory effort, no accessory muscle use Cardiovascular: Heart regular in rate and rhythm, No murmurs, gallops, or rubs No peripheral edema Abdominal: Soft Nontender, no guarding, rebound or rigidity Abdomen moving with respiration Normoactive bowel sounds No hepatomegaly, No splenomegaly No palpable mass No abdominal wall hernia noted Skin: Normal temperature, tone, texture, turgor No induration No subcutaneous nodules No rash, lesions No ulcers Extremities: No digital cyanosis No clubbing Pedal pulses intact and symmetrical Radial pulses intact and symmetrical No calf tenderness Psychiatric: Alert and oriented to person, place and time Appropriate affect fair judgement Neuro Muscles Strength 5/5 in all 4 extremities Sensation to light touch grossly present throughout Cranial nerves II-XII grossly intact Lymphatics: no palpable cervical or supraclavicular lymph nodes Past Medical History Past Medical History: Atrial Fibrillation, Hypertension, Prostate Disorder, Thyroid Disorder Additional Past Medical History / Comment(s): FREQUENT PVCS, hypothyroid, genital herpes History of Any Multi-Drug Resistant Organisms: None Reported Past Surgical History: Heart Catheterization With Stent, Orthopedic Surgery, Tonsillectomy Additional Past Surgical History / Comment(s): knee,shoulder, and wrist Past Anesthesia/Blood Transfusion Reactions: No Reported Reaction Date of Last Stent Placement:: 1998 Past Psychological History: No Psychological Hx Reported Past Alcohol Use History: None Reported Past Drug Use History: None Reported - Past Family History Mother Family Medical History: Asthma, COPD, Coronary Artery Disease (CAD), Diabetes Mellitus Additional Family Medical History / Comment(s): at 75yrs old, polyps in colon, colostomy bag Father Family Medical History: Myocardial Infarction ([place]) Additional Family Medical History / Comment(s): with a heart attack Medications and Allergies Home Medications Medication Instructions Recorded Confirmed Type Aspirin 81 mg PO DAILY 08/28/13 09/29/22 History Metoprolol Succinate [Toprol XL] 50 mg PO BID 08/28/13 09/29/22 History Potassium Gluconate [Potassium 99 mg PO DAILY 12/14/13 09/29/22 History Gluconate ER] Atorvastatin [Lipitor] 40 mg PO DAILY 09/29/22 09/29/22 History Ibuprofen [Motrin] 800 mg PO Q8H PRN 09/29/22 09/29/22 History Levothyroxine Sodium [Synthroid] 150 mcg PO DAILY 09/29/22 09/29/22 History Lisinopril-Hctz 20-12.5 mg 2 tab PO DAILY 09/29/22 09/29/22 History [Zestoretic 20-12.5] Magnesium Oxide [Magnesium] 500 mg PO DAILY 09/29/22 09/29/22 History Allergies Allergy/AdvReac Type Severity Reaction Status Date / Time No Known Allergies Allergy Verified 09/29/22 20:56 Physical Exam Vitals: Vital Signs Temp Pulse Resp BP Pulse Ox 09/30/22 02:00 55 L 18 119/67 98 09/30/22 01:00 64 18 118/64 98 09/30/22 00:00 57 L 18 117/63 98 08/22/23 23:00 60 18 108/67 98 09/29/22 22:00 64 18 107/70 98 09/29/22 20:50 75 18 113/72 98 09/29/22 19:50 103 H 18 119/86 98 09/29/22 18:47 98 F 59 L 18 109/68 96 Intake and Output 09/29/22 09/29/22 09/30/22 14:59 22:59 06:59 Other: Weight 111.13 kg Results CBC & Chem 7: 09/29/22 19:24 09/29/22 19:24 Labs: Abnormal Lab Results - Last 24 Hours (Table) 09/29/22 09/29/22 Range/Units 19:24 19:24 RBC 4.08 L (4.30-5.90) m/uL Plt Count 139 L (150-450) k/uL BUN 22 H (9-20) mg/dL Glucose 129 H (74-99) mg/dL Assessment and Plan Assessment: 71-year-old male coming in for palpitations I discussed the case with the ED doctor and accepted the admission for atrial fibrillation with RVR with anticipated length of stay more than 2 midnights A. fib with RV History of atrial flutter on aspirin Patient started on Cardizem drip Heparin drip Troponins negative Hemoglobin 13.3 unremarkable Renal function unremarkable sodium 138 potassium 4.1 BUN 14 creatinine 1.11 cardiology evaluation Resume metoprolol 50 mg bid Chest x-ray no acute pathology Chronic conditions hypothyroidism levothyroxin Hyperlipidemia resume statin Hypertension resume lisinopril and metoprolol full code DVT prophylaxis on heparin drip for A. fib
[2022-09-30] MEDS ORDERED: HEPARIN SODIUM 1,000 UN/ML (10ML VL) IV PRN (04:07)
[2022-09-30] MEDS: LEVOTHYROXINE 75 MCG TAB PO SCH (06:16)
[2022-09-30] MEDS ORDERED: ASPIRIN 325 MG TAB PO SCH (09:00)
[2022-09-30] MEDS ORDERED: ASPIRIN 81 MG PO SCH (09:00)
[2022-09-30] MEDS: APIXABAN 5 MG TAB PO SCH ×2 (09:34→20:27)
[2022-09-30] MEDS: LISINOPRIL-HCTZ 20-12.5 MG 1 EACH TAB PO SCH (09:34)
[2022-09-30] MEDS: ATORVASTATIN 40 MG TAB PO SCH (09:34)
[2022-09-30] MEDS: METOPROLOL SUCCINATE (ER) 50 MG TAB.ER.24H PO SCH ×2 (09:38→20:27)
--- NOTE | 2022-09-30 10:22 | P.CRDCN ---
History of Present Illness History of present illness: HISTORY OF PRESENT ILLNESS: This is a 71-year-old male with a past medical history significant for hypothyroidism, hypertension, hyperlipidemia, and atrial flutter/fibrillation. Patient follows with Dr. Rodriguez at [facility]. We have been asked to see the patient in consultation for atrial fibrillation. Patient examined at the bedside in the emergency room. Patient presented to the hospital with a chief complaint of palpitations. EKG performed on arrival reveals sinus mechanism with PACs. Bedside telemetry at the time of examination reveals sinus mech anism. The patient states he recently had Covid about 3 weeks ago. He states he is still having some side effects from his Covid such as feeling rundown, mild shortness of breath, and a sore throat. He states that his communications superintendent recently prescribed Eliquis for him to take but he has not started this because he is concerned about the risk of bleeding. However, the patient is no agreeable to begin intake regulation. * EKG reveals sinus mechanism with PACs * Chest xray no evidence for acute pulmonary process * Laboratory data: WBC 8.4. Hemoglobin 13.6. Platelet count 139. Sodium 140. Potassium 3.6. BUN 22. Creatinine 0.80. Troponin negative 3. TSH 2.130. * Current home cardiac medications include aspirin 81 mg daily, lisinopril- hydrochlorothiazide 20-12.5 2 tablets daily, atorvastatin 40 mg daily, and metoprolol succinate 50 mg twice a day REVIEW OF SYSTEMS: At the time of my exam: CONSTITUTIONAL: Denies fever or chills. HEENT: Denies blurred vision, vision changes, or eye pain. Denies hemoptysis CARDIOVASCULAR: Denies chest pain. Denies orthopnea. Denies PND. Denies palpitations RESPIRATORY: Denies shortness of breath. GASTROINTESTINAL: Denies abdominal pain. Denies nausea or vomiting. HEMATOLOGIC: Denies bleeding disorders. GENITOURINARY: Denies any blood in urine. SKIN: Denies pruitis. Denies rash. PHYSICAL EXAM: VITAL SIGNS: Reviewed. GENERAL: Well-developed in no acute distress. HEENT: Head is normocephalic. Pupils are equal, round. Sclerae anicteric. Mucous membranes of the mouth are moist. Neck supple. No JVD or thyromegaly LUNGS: Respirations even and unlabored. Lungs essentially clear to auscultation bilaterally. HEART: Regular rate and rhythm. S1 and S2 heard. ABDOMEN: Soft. Nondistended. Nontender. EXTREMITIES: Normal range of motion. No clubbing or cyanosis. Peripheral pulses intact. No lower extremity edema NEUROLOGIC: Awake and alert. Oriented x 3. ASSESSMENT: Palpitations Paroxysmal typical atrial flutter/atrial fibrillation, currently maintaining sinus mechanism Hypertension Hyperlipidemia Hypothyroidism PLAN: Obtain 2-D echo to assess cardiac structure and function Resume home cardiac medications Discontinue IV heparin and IV Cardizem Begin Eliquis 5mg BID (patient already has a prescription for this as he was prescribed recently by his primary communications superintendent) Continue telemetry monitoring Further recommendations pending patient's course Nurse practitioner note has been reviewed by physician. Signing provider agrees with the documented findings, assessment, and plan of care. Past Medical History Past Medical History: Atrial Fibrillation, Hypertension, Prostate Disorder, Thyroid Disorder Additional Past Medical History / Comment(s): FREQUENT PVCS, hypothyroid, genital herpes History of Any Multi-Drug Resistant Organisms: None Reported Past Surgical History: Heart Catheterization With Stent, Orthopedic Surgery, Tonsillectomy Additional Past Surgical History / Comment(s): knee,shoulder, and wrist Past Anesthesia/Blood Transfusion Reactions: No Reported Reaction Date of Last Stent Placement:: 1998 Past Psychological History: No Psychological Hx Reported Past Alcohol Use History: None Reported Past Drug Use History: None Reported - Past Family History Mother Family Medical History: Asthma, COPD, Coronary Artery Disease (CAD), Diabetes Mellitus Additional Family Medical History / Comment(s): at 75yrs old, polyps in colon, colostomy bag Father Family Medical History: Myocardial Infarction ([place]) Additional Family Medical History / Comment(s): with a heart attack Medications and Allergies Home Medications Medication Instructions Recorded Confirmed Type Aspirin 81 mg PO DAILY 08/28/13 09/29/22 History Metoprolol Succinate [Toprol XL] 50 mg PO BID 08/28/13 09/29/22 History Potassium Gluconate [Potassium 99 mg PO DAILY 12/14/13 09/29/22 History Gluconate ER] Atorvastatin [Lipitor] 40 mg PO DAILY 09/29/22 09/29/22 History Ibuprofen [Motrin] 800 mg PO Q8H PRN 09/29/22 09/29/22 History Levothyroxine Sodium [Synthroid] 150 mcg PO DAILY 09/29/22 09/29/22 History Lisinopril-Hctz 20-12.5 mg 2 tab PO DAILY 09/29/22 09/29/22 History [Zestoretic 20-12.5] Magnesium Oxide [Magnesium] 500 mg PO DAILY 09/29/22 09/29/22 History Allergies Allergy/AdvReac Type Severity Reaction Status Date / Time No Known Allergies Allergy Verified 09/29/22 20:56 Physical Exam Vitals: Vital Signs Temp Pulse Resp BP Pulse Ox 09/30/22 08:47 56 L 18 125/76 97 09/30/22 06:00 54 L 18 104/64 98 09/30/22 05:00 53 L 18 98/52 98 09/30/22 04:00 57 L 18 105/56 98 09/30/22 02:00 55 L 18 119/67 98 09/30/22 01:00 64 18 118/64 98 09/30/22 00:00 57 L 18 117/63 98 09/29/22 23:00 60 18 108/67 98 09/29/22 22:00 64 18 107/70 98 09/29/22 20:50 75 18 113/72 98 09/29/22 19:50 103 H 18 119/86 98 09/29/22 18:47 98 F 59 L 18 109/68 96 Intake and Output 09/29/22 09/30/22 09/30/22 22:59 06:59 14:59 Intake Total 66.68 Balance 66.68 Intake: Intake, IV Titration 66.68 Amount Heparin Sod,Pork in 0.45% 66.68 NaCl 25,000 unit In 0.45 % NaCl 1 250ml.bag @ 9 UNITS/KG/HR 10.002 mls/hr IV .Q24H [facility] Rx#: [id number] Other: Weight 111.13 kg Results 09/29/22 19:24 09/29/22 19:24 Cardiac Enzymes 09/29/22 09/29/22 09/29/22 Range/Units 19:24 19:24 22:15 AST 28 (17-59) U/L Troponin I <0.012 <0.012 (0.000-0.034) ng/mL 09/30/22 Range/Units 02:14 AST (17-59) U/L Troponin I <0.012 (0.000-0.034) ng/mL Coagulation 09/29/22 09/30/22 Range/Units 19:24 02:14 PT 11.5 (9.0-12.0) sec APTT 23.1 41.3 H (22.0-30.0) sec CBC 09/29/22 Range/Units 19:24 WBC 8.4 (3.8-10.6) k/uL RBC 4.08 L (4.30-5.90) m/uL Hgb 13.6 (13.0-17.5) gm/dL Hct 40.0 (39.0-53.0) % Plt Count 139 L (150-450) k/uL Comprehensive Metabolic Panel 09/29/22 Range/Units 19:24 Sodium 140 (137-145) mmol/L Potassium 3.6 (3.5-5.1) mmol/L Chloride 103 (98-107) mmol/L Carbon Dioxide 28 (22-30) mmol/L BUN 22 H (9-20) mg/dL Creatinine 0.80 (0.66-1.25) mg/dL Glucose 129 H (74-99) mg/dL Calcium 8.8 (8.4-10.2) mg/dL AST 28 (17-59) U/L ALT 25 (4-49) U/L Alkaline Phosphatase 74 (38-126) U/L Total Protein 7.1 (6.3-8.2) g/dL Albumin 4.1 (3.5-5.0) g/dL Current Medications Generic Name Dose Route Start Last Admin Trade Name Freq PRN Reason Stop Dose Admin Aspirin 81 mg 09/30/22 09:00 Aspirin 81 Mg PO DAILY [facility] Atorvastatin Calcium 40 mg 09/30/22 09:00 Atorvastatin 40 Mg Tab PO DAILY [facility] Lisinopril/HCTZ 2 each 09/30/22 09:00 Lisinopril-Hctz 20-12.5 Mg 1 Each Tab PO DAILY [facility] Heparin Sodium (Porcine) 0 unit 09/30/22 04:07 09/30/22 04:09 Heparin Sodium 1,000 Un/Ml (10ml Vl) IV 2,778 unit PER PROTOCOL PRN Administration Low PTT Protocol Heparin Sodium/Sodium Chloride 250 mls @ 10.002 mls/hr 09/29/22 20:30 09/30/22 03:54 25,000 unit/ Sodium Chloride IV 11 units/kg/hr .Q24H [facility] 12.224 mls/hr Titration Protocol 9 UNITS/KG/HR Levothyroxine Sodium 150 mcg 09/30/22 06:30 09/30/22 06:16 Levothyroxine 75 Mcg Tab PO 150 mcg DAILY@0630 [facility] Administration Metoprolol Succinate 50 mg 09/30/22 09:00 Metoprolol Succinate (Er) 50 Mg Tab.Er.24h PO BID [facility] Intake and Output 09/29/22 09/30/22 09/30/22 22:59 06:59 14:59 Intake Total 66.68 Balance 66.68 Intake: Intake, IV Titration 66.68 Amount Heparin Sod,Pork in 0.45% 66.68 NaCl 25,000 unit In 0.45 % NaCl 1 250ml.bag @ 9 UNITS/KG/HR 10.002 mls/hr IV .Q24H [facility] Rx#: [id number] Other: Weight 111.13 kg 09/29/22 19:24 09/29/22 19:24
--- NOTE | 2022-09-30 10:47 | CA ---
Transthoracic Echo Report Name: Dominik Trevizo Age: 71 Gender: M : 1950 Exam Date: 09/30/2022 07:32 Exam Location: [place] [facility] Ht (in): 70 Wt (lb): 245 Ordering Physician: Jeremias Faustin DO Attending/Referring Phys: Family Preservation Worker Tamara Paul [facility] Procedure CPT: Indications: a fib Cardiac Hx: Technical Quality: Fair Contrast 1: Total Dose (mL): Contrast 2: Total Dose (mL): MEASUREMENTS (Male / Female) Normal Values 2D ECHO LV Diastolic Diameter PLAX 5.1 cm 4.2 - 5.9 / 3.9 - 5.3 cm LV Systolic Diameter PLAX 4.0 cm IVS Diastolic Thickness 0.9 cm 0.6 - 1.0 / 0.6 - 0.9 cm LVPW Diastolic Thickness 1.0 cm 0.6 - 1.0 / 0.6 - 0.9 cm LV Relative Wall Thickness 0.4 LVOT Diameter 2.0 cm Ascending Aorta Diameter 3.5 cm M-MODE Aortic Root Diameter MM 3.0 cm LA Systolic Diameter MM 4.7 cm LA Ao Ratio MM 1.6 AV Cusp Separation MM 1.4 cm DOPPLER AV Peak Velocity 207.4 cm/s AV Peak Gradient 17.2 mmHg AV Mean Velocity 148.2 cm/s AV Mean Gradient 9.7 mmHg AV Velocity Time Integral 46.7 cm LVOT Peak Velocity 92.8 cm/s LVOT Peak Gradient 3.4 mmHg LVOT Velocity Time Integral 21.4 cm LVOT Stroke Volume 64.6 cm??? LVOT Stroke Volume Index 28.4 ml/m??? LVOT Cardiac Index 1545.6 cm???/min???m??? AV Area Cont Eq vti 1.4 cm??? AV Area Cont Eq pk 1.4 cm??? Mitral E Point Velocity 84.7 cm/s Mitral A Point Velocity 78.8 cm/s Mitral E to A Ratio 1.1 MV Deceleration Time 159.0 ms LV E' Lateral Velocity 8.6 cm/s Mitral E to LV E' Lateral Ratio 9.9 LV E' Septal Velocity 8.2 cm/s Mitral E to LV E' Septal Ratio 10.3 TR Peak Velocity 139.6 cm/s TR Peak Gradient 7.8 mmHg Right Atrial Pressure 3.0 mmHg Pulmonary Artery Systolic Pressu 10.8 mmHg Right Ventricular Systolic Press 10.8 mmHg FINDINGS Left Ventricle Left ventricular wall thickness at upper limits of normal. Left ventricular cavity size normal. Low normal left ventricular systolic function with no obvious regional wall motion abnormalities. Left ventricular ejection fraction is estimated at 50-55%. Right Ventricle Severe right ventricular dilatation. Right Atrium Mild right atrial dilatation. Left Atrium Normal left atrial size. Mitral Valve Structurally normal mitral valve. Mild mitral regurgitation. Aortic Valve Trileaflet aortic valve. Aortic valve sclerosis. Diffuse thickening of the aortic valve cusps with reduced excursion. [id number] aortic stenosis with a peak gradient of 17.2 mmHg and a mean gradient of 9.7 mmHg. Tricuspid Valve Structurally normal tricuspid valve. Trace tricuspid regurgitation. Pulmonic Valve Structurally normal pulmonic valve. Mild pulmonic regurgitation. Pericardium No pericardial effusion. Aorta Normal size aortic root and proximal ascending aorta. CONCLUSIONS Mild LVH with preserved systolic function RV enlargement Thickened aortic valve leaflets with mild stenosis Previewed by: Dr. Donovan Maldonado MD (Electronically Signed) Final Date: 30 September 2022 10:46
[2022-09-30 10:59] LABS: Mean Platelet Volume 9.4; Platelet Count 146 k/uL (150-450)
--- NOTE | 2022-09-30 13:57 | P.PN ---
Subjective Progress Note Date: 09/30/22 No new complaints. Patient says the palpitations have significantly improved. Gen: awake, alert HEENT: normocephalic, atraumatic, good hearing acuity, moist mucous membranes Resp: good air exchange, breathing comfortably with no accessory muscle use CVS: good distal perfusion x 4, GI: soft, NTTP, ND : no SPT, no CVAT, gerard catheter not present MSK: no pitting edema, no clubbing Neuro: non-focal, moving all extremities Psych: cooperative, euthymic mood Hospital course: 71-year-old man with medical history of hypothyroidism, hyperlipidemia, hypertension presented for evaluation palpitations. In the emergency room, patient was afebrile, 109/68, heart rate 59, 96% on room air. CBC shows plate let count of 139, otherwise unremarkable. Basic metabolic panel shows BMI 22, otherwise unremarkable. Liver function tests are unremarkable. TSH is 2.13, free T4 is 1.08, free T3 is 2.3. Troponin is less than 0.0123. Coags are unremarkable. Chest x-ray shows normal-sized heart, clear parenchyma bilaterally. EKG shows sinus tachycardia with first-degree AV block and frequent PACs. Case was discussed with emergency room and decision was made to admit patient observation for palpitations. Assessment: Paroxysmal atrial flutter ablation with RVR History of atrial flutter on aspirin Hypothyroidism Hyperlipidemia Hypertension Plan: Vital signs, lab work, imaging reviewed and listed in the hospital course above Echocardiogram reviewed, mild LVH with preserved systolic function, RV en largement, mild to moderate aortic stenosis with peak gradient of 17.2 Heparin drip transition to Apixiban Cardizem drip transition to metoprolol Continue to monitor patient on telemetry Cardiology recommendations appreciated Patient is full code Objective - Vital Signs Vital signs: Vital Signs Temp 98 F 09/29/22 18:47 Pulse 55 L 09/30/22 09:30 Resp 18 09/30/22 09:30 BP 130/80 09/30/22 09:30 Pulse Ox 97 09/30/22 09:30 FiO2 Intake & Output 09/29/22 09/30/22 09/30/22 18:59 06:59 18:59 Intake Total 66.68 Balance 66.68 Weight 111.13 kg Intake: Intake, IV Titration 66.68 Amount Heparin Sod,Pork in 0.45% 66.68 NaCl 25,000 unit In 0.45 % NaCl 1 250ml.bag @ 9 UNITS/KG/HR 10.002 mls/hr IV .Q24H [facility] Rx#: [id number] - Labs CBC & Chem 7: 09/30/22 10:46 09/29/22 19:24 Labs: Abnormal Lab Results - Last 24 Hours (Table) 09/29/22 09/29/22 09/30/22 Range/Units 19:24 19:24 02:14 RBC 4.08 L (4.30-5.90) m/uL Plt Count 139 L (150-450) k/uL APTT 41.3 H (22.0-30.0) sec BUN 22 H (9-20) mg/dL Glucose 129 H (74-99) mg/dL 09/30/22 Range/Units 10:46 RBC (4.30-5.90) m/uL Plt Count 146 L (150-450) k/uL APTT (22.0-30.0) sec BUN (9-20) mg/dL Glucose (74-99) mg/dL
[2022-09-30 20:24] LABS: Chol/HDL Ratio 2.98 Ratio; LDL Cholesterol,Calculated 67.2 mg/dL (0.0-131.0)
[2022-10-01] MEDS: LEVOTHYROXINE 75 MCG TAB PO SCH (05:38)
[2022-10-01 07:25] LABS: Mean Platelet Volume 10.2; Platelet Count 128 k/uL (150-450)
[2022-10-01] MEDS: LISINOPRIL-HCTZ 20-12.5 MG 1 EACH TAB PO SCH (08:32)
[2022-10-01] MEDS: APIXABAN 5 MG TAB PO SCH (08:32)
[2022-10-01] MEDS: METOPROLOL SUCCINATE (ER) 50 MG TAB.ER.24H PO SCH (08:32)
[2022-10-01] MEDS: ATORVASTATIN 40 MG TAB PO SCH (08:32)
[2022-10-01 09:34] VITALS: PULSE 60
[2022-10-01 09:35] VITALS: BP 122/75; TEMP 98.1
--- NOTE | 2022-10-01 11:41 | P.DS ---
Providers Date of admission: 09/29/22 20:24 Expected date of discharge: 10/01/22 Attending physician: Efraín Valles MD Consults: 09/29/22 20:24 Consult Physician Urgent Consulting Provider: Benjamin Rivera Consult Reason/Comments: a fib Do you want consulting provider notified?: Yes Primary care physician: [place] Hospital Course: Assessment: Paroxysmal atrial flutter ablation with RVR History of atrial flutter on aspirin Hypothyroidism Hyperlipidemia Hypertension Hospital course: 71-year-old man with medical history of hypothyroidism, hyperlipidemia, hypertension presented for evaluation palpitations. In the emergency room, patient was afebrile, 109/68, heart rate 59, 96% on room air. CBC shows platelet count of 139, otherwise unremarkable. Basic metabolic panel shows BMI 22, otherwise unremarkable. Liver function tests are unremarkable. TSH is 2.13, free T4 is 1.08, free T3 is 2.3. Troponin is less than 0.0123. Coags are unremarkable. Chest x-ray shows normal-sized heart, clear parenchyma bilaterally. EKG shows sinus tachycardia with first-degree AV block and frequent PACs. Case was discussed with emergency room and decision was made to admit patient observation for palpitations. Echo showed preserved EF to 50-55%, severe RV dilation. Pt was started on AC here for AFib. He converted to NSR and his cardizem was stopped and transitioned back to metoprolol by cardiology service. He felt back to baseline by day of discharge and was ambulating the halls freely. He was discharged home with PCP and cardiology f/u. I spent 38 minutes coordinating this discharge on 10/01 Gen: awake, alert HEENT: normocephalic, atraumatic, good hearing acuity, moist mucous membranes Resp: good air exchange, breathing comfortably with no accessory muscle use CVS: good distal perfusion x 4, GI: soft, NTTP, ND : no SPT, no CVAT, gerard catheter not present MSK: no pitting edema, no clubbing Neuro: non-focal, moving all extremities Psych: cooperative, euthymic mood Patient Condition at Discharge: Good Plan - Discharge Summary Discharge Rx Participant: No New Discharge Prescriptions: New Diltiazem Oral [Cardizem Oral] 60 mg PO DAILY PRN #90 tablet PRN Reason: tachycardia Apixaban [Eliquis] 5 mg PO BID #60 tab Continue Aspirin 81 mg PO DAILY Metoprolol Succinate [Toprol XL] 50 mg PO BID Potassium Gluconate [Potassium Gluconate ER] 99 mg PO DAILY Levothyroxine Sodium [Synthroid] 150 mcg PO DAILY Magnesium Oxide [Magnesium] 500 mg PO DAILY Atorvastatin [Lipitor] 40 mg PO DAILY Lisinopril-Hctz 20-12.5 mg [Zestoretic 20-12.5] 2 tab PO DAILY Discontinued Ibuprofen [Motrin] 800 mg PO Q8H PRN PRN Reason: Pain Or Fever > 100.5 Discharge Medication List Aspirin 81 mg PO DAILY 08/28/13 [History] Metoprolol Succinate [Toprol XL] 50 mg PO BID 08/28/13 [History] Potassium Gluconate [Potassium Gluconate ER] 99 mg PO DAILY 12/14/13 [History] Atorvastatin [Lipitor] 40 mg PO DAILY 09/29/22 [History] Levothyroxine Sodium [Synthroid] 150 mcg PO DAILY 09/29/22 [History] Lisinopril-Hctz 20-12.5 mg [Zestoretic 20-12.5] 2 tab PO DAILY 09/29/22 [History] Magnesium Oxide [Magnesium] 500 mg PO DAILY 09/29/22 [History] Apixaban [Eliquis] 5 mg PO BID #60 tab 10/01/22 [Rx] Diltiazem Oral [Cardizem Oral] 60 mg PO DAILY PRN #90 tablet 10/01/22 [Rx] Follow up Appointment(s)/Referral(s): None,Stated [REFERRING] - 1-2 days Patient Instructions/Handouts: A-fib (Atrial Fibrillation) (DC) Discharge Disposition: HOME SELF-CARE
--- NOTE | 2022-10-01 12:56 | P.PN ---
Subjective HISTORY OF PRESENT ILLNESS: This is a 71-year-old male with a past medical history significant for hypothyroidism, hypertension, hyperlipidemia, and atrial flutter/fibrillation. Patient follows with Dr. Rodriguez at [facility]. We have been asked to see the patient in consultation for atrial fibrillation. Patient examined at the bedside in the emergency room. Patient presented to the hospital with a chief complaint of palpitations. EKG performed on arrival reveals sinus mechanism with PACs. Bedside telemetry at the time of examination reveals sinus mechanism. The patient states he recently had Covid about 3 weeks ago. He states he is still having some side effects from his Covid such as feeling rundown, mild shortness of breath, and a sore throat. He states that his hvac service tech recently prescribed Eliquis for him to take but he has not started this because he is concerned about the risk of bleeding. However, the patient is no agreeable to begin anticoagulation * EKG reveals sinus mechanism with PACs * Chest xray no evidence for acute pulmonary process * Laboratory data: WBC 8.4. Hemoglobin 13.6. Platelet count 139. Sodium 140. Potassium 3.6. BUN 22. Creatinine 0.80. Troponin negative 3. TSH 2.130. * Current home cardiac medications include aspirin 81 mg daily, lisinopril-hydrochlorothiazide 20-12.5 2 tablets daily, atorvastatin 40 mg daily, and metoprolol succinate 50 mg twice a day 10/01/2022 Patient examined this morning at the bedside. Patient denies chest pain or pressure. He denies shortness of breath. Telemetry reveals sinus mechanism. Patient has been up ambulating in the hallways this morning with no complaints of palpitations. Vital signs are stable. PHYSICAL EXAM: VITAL SIGNS: Reviewed. GENERAL: Well-developed in no acute distress. HEENT: Head is normocephalic. Pupils are equal, round. Sclerae anicteric. Mucous membranes of the mouth are moist. Neck supple. No JVD or thyromegaly LUNGS: Respirations even and unlabored. Lungs essentially clear to auscultation bilaterally. HEART: Regular rate and rhythm. S1 and S2 heard. ABDOMEN: Soft. Nondistended. Nontender. EXTREMITIES: Normal range of motion. No clubbing or cyanosis. Peripheral pulses intact. No lower extremity edema NEUROLOGIC: Awake and alert. Oriented x 3. ASSESSMENT: Palpitations Paroxysmal typical atrial flutter/atrial fibrillation, currently maintaining sinus mechanism Hypertension Hyperlipidemia Hypothyroidism PLAN: Continue current cardiac medications Recommend Cardizem 60 mg PRN post discharge for palpitations Consider Flecainide on an outpatient basis. Recommend stress testing and event monitor to be performed by his primary hvac service tech. Patient may be discharged home today from a cardiac standpoint Nurse practitioner note has been reviewed by physician. Signing provider agrees with the documented findings, assessment, and plan of care. Objective - Vital Signs Vital signs: Vital Signs Temp 98.1 F 10/01/22 08:00 Pulse 60 10/01/22 08:00 Resp 18 10/01/22 08:00 BP 122/75 10/01/22 08:00 Pulse Ox 95 10/01/22 08:00 FiO2 21 10/01/22 00:47 Intake & Output 09/30/22 10/01/22 10/01/22 18:59 06:59 18:59 Intake Total 180 Balance 180 Intake: Oral 180 Other: Voiding Method Toilet Toilet # Voids 2 - Labs CBC & Chem 7: 10/01/22 06:41 09/29/22 19:24 Labs: Abnormal Lab Results - Last 24 Hours (Table) 10/01/22 Range/Units 06:41 Plt Count 128 L (150-450) k/uL
== END 2022-10-01 12:01 | disposition home or self-care (01) | DRG 310 ==
LOC: EC 18:39 → 3SCARD 20:24
PROVIDERS: ADMIT Internal Medicine; ATTEND Internal Medicine
DX: I48.3 Typical atrial flutter (principal); I48.0 Paroxysmal atrial fibrillation; E03.9 Hypothyroidism, unspecified; E78.5 Hyperlipidemia, unspecified; I49.3 Ventricular premature depolarization; I49.1 Atrial premature depolarization; Z86.16 Personal history of COVID-19; I10 Essential (primary) hypertension; Z79.82 Long term (current) use of aspirin; Z79.01 Long term (current) use of anticoagulants; Z79.899 Other long term (current) drug therapy; I44.0 Atrioventricular block, first degree; Z09 Encounter for follow-up examination after completed treatment for conditions other than malignant neoplasm; Z82.49 Family history of ischemic heart disease and other diseases of the circulatory system; Z82.5 Family history of asthma and other chronic lower respiratory diseases; Z79.890 Hormone replacement therapy
CPT/HCPCS: 36415; 71046; 80053; 80061; 83735; 84439; 84443; 84481; 84484; 85025; 85049; 85610; 85730; 93005; 93306; 94760; 96365; 96366; 96368; 96375; 99291

== ENCOUNTER 2024-01-01 16:58 | Observation (INO) | payer MEDICARE ==
[2024-01-01 18:25] LABS: Basophils # (A) 0.1 k/uL (0-0.2); Basophils % (A) 0 %; Eosinophils # (A) 0.1 k/uL (0-0.7); Eosinophils % (A) 1 %; HCT 42.9 % (39.0-53.0); HGB 14.3 gm/dL (13.0-17.5); Lymphocytes % (A) 18 %; MCHC 33.4 g/dL (31.0-37.0); MCV 98.7 fL (80.0-100.0); Mean Platelet Volume 9.6; Monocytes # (A) 0.6 k/uL (0-1.0); Monocytes % (A) 5 %; Neutrophils # (A) 8.3 k/uL (1.3-7.7); Neutrophils % (A) 73 %; Platelet Count 154 k/uL (150-450); RBC 4.34 m/uL (4.30-5.90); RDW 12.4 % (11.5-15.5); WBC 11.3 k/uL (3.8-10.6)
--- NOTE | 2024-01-01 18:29 | ED ---
Arrhythmia/Palpitations HPI - General Chief Complaint: Arrhythmia/Palpitations Stated Complaint: chest pain Time Seen by Provider: 01/01/24 17:15 Source: patient, family Mode of arrival: wheelchair Limitations: no limitations - History of Present Illness Initial Comments: 73-year-old male with past medical history of A-fib who presents emergency department with rapid heart rate. States that over the past week he has had episodes of palpitations. He does follow with a sheather out of [facility]. States that he made an appointment with his sheather. Patient was in a normal sinus rhythm. He also has had a heart cath within the past 6 weeks. He does have 1 stent. His recent cath was negative. Patient admits that tonight he felt his heart really start racing and this is what prompted him to come into the emergency department. He denies any recent medication changes. No recent illnesses. He does take all of his medications as directed without any missed doses. Patient is on anticoagulation. He denies any chest pain. Mild associated difficulty breathing. No abdominal pain. No numbness, tingling or weakness in his extremities. No other alleviating, precipitating or modifying factors - Related Data Home Medications Medication Instructions Recorded Confirmed Aspirin 81 mg PO DAILY 08/28/13 01/02/24 Metoprolol Succinate [Toprol XL] 50 mg PO BID 08/28/13 01/02/24 Potassium Gluconate [Potassium 99 mg PO DAILY 12/14/13 01/02/24 Gluconate ER] Atorvastatin [Lipitor] 40 mg PO DAILY 09/29/22 01/02/24 Levothyroxine Sodium [Synthroid] 150 mcg PO HS 09/29/22 01/02/24 Lisinopril-Hctz 20-12.5 mg 1 tab PO BID 09/29/22 01/02/24 [Zestoretic 20-12.5] Magnesium Oxide [Magnesium] 500 mg PO DAILY 09/29/22 01/02/24 Meclizine [Antivert] 25 mg PO TID PRN 01/02/24 01/02/24 Vitamin D3(Unknown Dose) 1 tab PO DAILY 01/02/24 01/02/24 valACYclovir HCL [Valtrex] 500 mg PO BID PRN 01/02/24 01/02/24 Previous Rx's Medication Instructions Recorded Apixaban [Eliquis] 5 mg PO BID #60 tab 10/01/22 Allergies Allergy/AdvReac Type Severity Reaction Status Date / Time No Known Allergies Allergy Verified 01/02/24 08:59 Review of Systems ROS Statement: Those systems with pertinent positive or pertinent negative responses have been documented in the HPI. ROS Other: All systems not noted in ROS Statement are negative. Past Medical History Past Medical History: Atrial Fibrillation, Hypertension, Prostate Disorder, Thyroid Disorder Additional Past Medical History / Comment(s): FREQUENT PVCS, hypothyroid, genital herpes History of Any Multi-Drug Resistant Organisms: None Reported Past Surgical History: Heart Catheterization With Stent, Orthopedic Surgery, Tonsillectomy Additional Past Surgical History / Comment(s): knee,shoulder, and wrist Past Anesthesia/Blood Transfusion Reactions: No Reported Reaction Date of Last Stent Placement:: 1998 Past Psychological History: No Psychological Hx Reported Smoking Status: Former smoker Past Alcohol Use History: None Reported Past Drug Use History: None Reported - Past Family History Mother Family Medical History: Asthma, COPD, Coronary Artery Disease (CAD), Diabetes Mellitus Additional Family Medical History / Comment(s): at 75yrs old, polyps in colon, colostomy bag Father Family Medical History: Myocardial Infarction ([place]) Additional Family Medical History / Comment(s): with a heart attack General Exam Limitations: no limitations General appearance: alert, in no apparent distress Head exam: Present: atraumatic, normocephalic, normal inspection Eye exam: Present: normal appearance, PERRL, EOMI. Absent: scleral icterus, conjunctival injection, periorbital swelling ENT exam: Present: normal exam, mucous membranes moist Neck exam: Present: normal inspection. Absent: tenderness, meningismus, lymphadenopathy Respiratory exam: Present: normal lung sounds bilaterally. Absent: respiratory distress, wheezes, rales, rhonchi, stridor Cardiovascular Exam: Present: tachycardia, irregular rhythm, normal heart sounds. Absent: systolic murmur, diastolic murmur, rubs, gallop, clicks GI/Abdominal exam: Present: soft, normal bowel sounds. Absent: distended, tenderness, guarding, rebound, rigid Extremities exam: Present: normal inspection, full ROM, normal capillary refill. Absent: tenderness, pedal edema, joint swelling, calf tenderness Back exam: Present: normal inspection Neurological exam: Present: alert, oriented X3, CN II-XII intact Psychiatric exam: Present: normal affect, normal mood Skin exam: Present: warm, dry, intact, normal color. Absent: rash Course Vital Signs 01/01/24 01/01/24 01/01/24 17:10 18:30 18:41 Temperature 98.1 F Pulse Rate 86 140 H Pulse Rate [ 80 Hand Buffing Wheel Former ] Respiratory 18 16 Rate Blood Pressure 117/76 119/75 O2 Sat by Pulse 95 97 Oximetry 01/01/24 01/01/24 01/02/24 19:25 22:00 00:51 Temperature 98.2 F 98.1 F Pulse Rate 79 67 67 Pulse Rate [ Hand Buffing Wheel Former ] Respiratory 16 15 17 Rate Blood Pressure 122/77 120/63 O2 Sat by Pulse 97 95 95 Oximetry 01/02/24 01/02/24 01/02/24 04:09 06:16 09:00 Temperature 98.3 F 98.2 F Pulse Rate 60 58 L 65 Pulse Rate [ Hand Buffing Wheel Former ] Respiratory 15 14 18 Rate Blood Pressure 120/58 162/77 O2 Sat by Pulse 95 98 98 Oximetry Medical Decision Making - Medical Decision Making Was pt. sent in by a medical professional or institution (, PA, BARN AND PROPERTY MANAGER, urgent care, hospital, or fci...) When possible be specific @ -No Did you speak to anyone other than the patient for history (EMS, parent, family, police, friend...)? What history was obtained from this source @ -Spoke with for history Did you review nursing and triage notes (agree or disagree)? Why? @ -I reviewed and agree with nursing and triage notes Were old charts reviewed (outside hosp., previous admission, EMS record, old EKG, old radiological studies, urgent care reports/EKG's, fci records)? Report findings @ -No old charts were reviewed Differential Diagnosis (chest pain, altered mental status, abdominal pain women, abdominal pain men, vaginal bleeding, weakness, fever, dyspnea, syncope, headache, dizziness, GI bleed, back pain, seizure, CVA, palpatations, mental health, musculoskeletal)? @ -Differential Palpitations Ventricular arrhythmias, atrial arrhythmias, myocardial infarction, anemia, thyrotoxicosis, electrolyte imbalance, hypokalemia, pulmonary embolism, pulmonary disease, drugs, alcohol, anxiety, stress.... This is not meant to be an all-inclusive list. EKG interpreted by me (3pts min.). @ -Yes, completed at 1715 and demonstrates sinus rhythm with a rate of 91. [place] interval 152. QRS 100. QTc of 411. No acute ST segment elevations. Q wave in lead III and aVF Repeat conducted at 1832 demonstrates A-fib with a rate of 125. QRS 106. QTc of 394. Repeat EKG conducted at 1932 demonstrates sinus rhythm with a rate of 68. [place] interval 191. QRS 105. QTc of 397. No acute ST segment elevations or depressions X-rays interpreted by me (1pt min.). @ -Yes and demonstrates no acute process CT interpreted by me (1pt min.). @ -None done U/S interpreted by me (1pt. min.). @ -None done What testing was considered but not performed or refused? (CT, X-rays, U/S, labs)? Why? @ -None What meds were considered but not given or refused? Why? @ -Cardizem was ordered however never administered to the patient Did you discuss the management of the patient with other professionals (professionals i.e. , PA, BARN AND PROPERTY MANAGER, lab, RT, psych nurse, neonatal social worker, church secretary, teacher, command center officer, medical case manager)? Give summary @ -Spoke with Dr. Byers who agreed to admit the patient Was smoking cessation discussed for >3mins.? @ -No Was critical care preformed (if so, how long)? @ -No Were there social determinants of health that impacted care today? How? (Homelessness, low income, unemployed, alcoholism, drug addiction, transportation, low edu. Level, literacy, decrease access to med. care, group home, rehab)? @ -No Was there de-escalation of care discussed even if they declined (Discuss DNR or withdrawal of care, Hospice)? DNR status @ -No What co-morbidities impacted this encounter? (DM, HTN, Smoking, COPD, CAD, Cancer, CVA, ARF, Chemo, Hep., AIDS, mental health diagnosis, sleep apnea, morbid obesity)? @ -Atrial fibrillation Was patient admitted / discharged? Hospital course, mention meds given and route, prescriptions, significant lab abnormalities, going to OR and other pertinent info. @ -Upon arrival patient seen and evaluated in bed 22. Thorough history and physical exam was performed. Original EKG demonstrated sinus rhythm. He has been placed on the hospital monitor in the room and does go in and out of atrial fibrillation with a rapid ventricular rate. IV was established. Laboratory studies are conducted. I did order Cardizem. Patient does spontaneously convert prior to administration. Because patient is very paroxysmal I did recommend admission for observation. Patient may benefit from medication adjustment. I spoke with Dr. Byers who will admit the patient. Cardiology will be placed on consult Undiagnosed new problem with uncertain prognosis? @ -No Drug Therapy requiring intensive monitoring for toxicity (Heparin, Nitro, Insulin, Cardizem)? @ -No Were any procedures done? @ -No Diagnosis/symptom? @ -Acute A-fib with RVR Acute, or Chronic, or Acute on Chronic? @ -Acute Uncomplicated (without systemic symptoms) or Complicated (systemic symptoms)? @ -Complicated Side effects of treatment? @ -No Exacerbation, Progression, or Severe Exacerbation? @ -Yes Poses a threat to life or bodily function? How? (Chest pain, [place], [place], pneumonia, PE, COPD, DKA, ARF, appy, cholecystitis, CVA, Diverticulitis, Homicidal, Suicidal, threat to staff... and all critical care pts) @ -No - Lab Data Result diagrams: 01/02/24 07:09 01/02/24 07:09 Lab Results 01/01/24 01/01/24 01/01/24 Range/Units 18:17 18:17 18:17 WBC 11.3 H (3.8-10.6) k/uL RBC 4.34 (4.30-5.90) m/uL Hgb 14.3 (13.0-17.5) gm/dL Hct 42.9 (39.0-53.0) % MCV 98.7 (80.0-100.0) fL MCH 33.0 (25.0-35.0) pg MCHC 33.4 (31.0-37.0) g/dL RDW 12.4 (11.5-15.5) % Plt Count 154 (150-450) k/uL MPV 9.6 Neutrophils % 73 % Lymphocytes % 18 % Monocytes % 5 % Eosinophils % 1 % Basophils % 0 % Neutrophils # 8.3 H (1.3-7.7) k/uL Lymphocytes # 2.0 (1.0-4.8) k/uL Monocytes # 0.6 (0-1.0) k/uL Eosinophils # 0.1 (0-0.7) k/uL Basophils # 0.1 (0-0.2) k/uL PT 11.3 (10.0-12.5) sec INR 1.0 (<1.2) APTT 25.4 (22.0-30.0) sec Sodium 137 (137-145) mmol/L Potassium 4.1 (3.5-5.1) mmol/L Chloride 102 (98-107) mmol/L Carbon Dioxide 30 (22-30) mmol/L Anion Gap 5 mmol/L BUN 32 H (9-20) mg/dL Creatinine 1.23 (0.66-1.25) mg/dL Est GFR (CKD-EPI)AfAm 68 (>60 ml/min/1.73 sqM) Est GFR (CKD-EPI)NonAf 59 (>60 ml/min/1.73 sqM) Glucose 98 (74-99) mg/dL Calcium 9.2 (8.4-10.2) mg/dL Magnesium 2.3 (1.6-2.3) mg/dL Total Bilirubin 0.6 (0.2-1.3) mg/dL AST 22 (17-59) U/L ALT 24 (4-49) U/L Alkaline Phosphatase 76 (38-126) U/L Troponin I (0.000-0.034) ng/mL Total Protein 7.2 (6.3-8.2) g/dL Albumin 4.3 (3.5-5.0) g/dL TSH 1.390 (0.465-4.680) mIU/L 01/01/24 Range/Units 18:17 WBC (3.8-10.6) k/uL RBC (4.30-5.90) m/uL Hgb (13.0-17.5) gm/dL Hct (39.0-53.0) % MCV (80.0-100.0) fL MCH (25.0-35.0) pg MCHC (31.0-37.0) g/dL RDW (11.5-15.5) % Plt Count (150-450) k/uL MPV Neutrophils % % Lymphocytes % % Monocytes % % Eosinophils % % Basophils % % Neutrophils # (1.3-7.7) k/uL Lymphocytes # (1.0-4.8) k/uL Monocytes # (0-1.0) k/uL Eosinophils # (0-0.7) k/uL Basophils # (0-0.2) k/uL PT (10.0-12.5) sec INR (<1.2) APTT (22.0-30.0) sec Sodium (137-145) mmol/L Potassium (3.5-5.1) mmol/L Chloride (98-107) mmol/L Carbon Dioxide (22-30) mmol/L Anion Gap mmol/L BUN (9-20) mg/dL Creatinine (0.66-1.25) mg/dL Est GFR (CKD-EPI)AfAm (>60 ml/min/1.73 sqM) Est GFR (CKD-EPI)NonAf (>60 ml/min/1.73 sqM) Glucose (74-99) mg/dL Calcium (8.4-10.2) mg/dL Magnesium (1.6-2.3) mg/dL Total Bilirubin (0.2-1.3) mg/dL AST (17-59) U/L ALT (4-49) U/L Alkaline Phosphatase (38-126) U/L Troponin I 0.054 H* (0.000-0.034) ng/mL Total Protein (6.3-8.2) g/dL Albumin (3.5-5.0) g/dL TSH (0.465-4.680) mIU/L Disposition Clinical Impression: Atrial fibrillation, Elevated troponin Disposition: ADMITTED IP TO THIS [facility] Condition: Stable Is patient prescribed a controlled substance at d/c from ED?: No Time of Disposition: 19:54 Decision to Admit Reason: Admit from EC Decision Date: 01/01/24 Decision Time: 19:54
[2024-01-01 18:35] LABS: Partial Thromboplastin Time 25.4 sec (22.0-30.0); Prothrombin Time 11.3 sec (10.0-12.5)
[2024-01-01 18:45] LABS: ALT 24 U/L (4-49); AST 22 U/L (17-59); African American GFR (CKD) 68 (>60 ml/min/1.73 sqM); Albumin 4.3 g/dL (3.5-5.0); Alkaline Phosphatase 76 U/L (38-126); Anion Gap 5 mmol/L; Blood Urea Nitrogen 32 mg/dL (9-20); Calcium 9.2 mg/dL (8.4-10.2); Carbon Dioxide 30 mmol/L (22-30); Chloride 102 mmol/L (98-107); Glucose 98 mg/dL (74-99); Magnesium 2.3 mg/dL (1.6-2.3); Non-African American GFR(CKD) 59 (>60 ml/min/1.73 sqM); Potassium 4.1 mmol/L (3.5-5.1); Sodium 137 mmol/L (137-145); Total Bilirubin 0.6 mg/dL (0.2-1.3); Total Protein 7.2 g/dL (6.3-8.2)
--- NOTE | 2024-01-01 19:27 | XR ---
EXAMINATION TYPE: XR chest 2V DATE OF EXAM: 01/01/2024 7:18 PM COMPARISON: Previous chest radiograph 09/29/2022. CLINICAL INDICATION: Male, 73 years old with history of dysrhythmia; [facility] TECHNIQUE: XR chest 2V Frontal and lateral views of the chest. FINDINGS: Lungs/Pleura: There is no evidence of pleural effusion, focal consolidation, or pneumothorax. Pulmonary vascularity: Unremarkable. Heart/mediastinum: Cardiomediastinal silhouette is unremarkable. Musculoskeletal: No acute osseous pathology. Other findings: None IMPRESSION: No acute cardiopulmonary disease/process. [facility], , 01/01/2024 7:25 PM
[2024-01-01] MEDS: DILTIAZEM 125 MG in SODIUM CHLORIDE 0.9% 100 ML IV SCH (19:41)
[2024-01-01] MEDS: DILTIAZEM DRIP BOLUS FROM BAG 1 MG SOLN IV ONE (19:41)
[2024-01-01] MEDS ORDERED: NALOXONE 0.4 MG/ML 1 ML VIAL IV PRN (19:54)
[2024-01-01] MEDS: APIXABAN 5 MG TAB PO SCH (20:11)
[2024-01-01] MEDS: METOPROLOL SUCCINATE (ER) 50 MG TAB.ER.24H PO SCH (20:11)
[2024-01-02 07:32] LABS: Basophils % (A) 0 %; Eosinophils # (A) 0.2 k/uL (0-0.7); Eosinophils % (A) 2 %; HCT 41.2 % (39.0-53.0); HGB 13.7 gm/dL (13.0-17.5); Lymphocytes # (A) 2.2 k/uL (1.0-4.8); Lymphocytes % (A) 23 %; MCH 32.6 pg (25.0-35.0); MCHC 33.3 g/dL (31.0-37.0); MCV 97.7 fL (80.0-100.0); Mean Platelet Volume 9.4; Monocytes # (A) 0.5 k/uL (0-1.0); Monocytes % (A) 5 %; Neutrophils # (A) 6.7 k/uL (1.3-7.7); Neutrophils % (A) 68 %; Platelet Count 137 k/uL (150-450); RBC 4.22 m/uL (4.30-5.90); RDW 12.9 % (11.5-15.5); WBC 9.8 k/uL (3.8-10.6)
[2024-01-02 07:45] LABS: African American GFR (CKD) 83 (>60 ml/min/1.73 sqM); Anion Gap 5 mmol/L; Blood Urea Nitrogen 26 mg/dL (9-20); Carbon Dioxide 31 mmol/L (22-30); Chloride 100 mmol/L (98-107); Glucose 110 mg/dL (74-99); Non-African American GFR(CKD) 72 (>60 ml/min/1.73 sqM); Sodium 136 mmol/L (137-145)
[2024-01-02] MEDS ORDERED: LISINOPRIL-HCTZ 20-12.5 MG 1 EACH TAB PO SCH (09:00)
[2024-01-02] MEDS ORDERED: NON FORMULARY DRUG (Potassium Gluconate [Potassium Gluconate Er] 99 MG Tablet.Er) PO SCH (09:00)
[2024-01-02] MEDS: ATORVASTATIN 40 MG TAB PO SCH (09:24)
[2024-01-02] MEDS: ASPIRIN 81 MG PO SCH (09:25)
[2024-01-02] MEDS: LISINOPRIL-HCTZ 20-12.5 MG 1 EACH TAB PO SCH (09:25)
[2024-01-02] MEDS: MAGNESIUM OXIDE 400 MG TAB PO SCH (09:25)
--- NOTE | 2024-01-02 11:51 | P.CRDCN ---
History of Present Illness Consult date: 01/02/24 History of present illness: HISTORY OF PRESENTING ILLNESS Patient presented to the hospital because of symptoms of pounding sensation and palpitations. He reports that he recently had a cardiac catheterization with Dr. Rodriguez in October where he was told that he has mild to moderate distal vessel small vessel disease. No interventions were performed. He has had prior PCI long time ago. This was done because he had an abnormal stress test which was done routinely. He also follows up with Dr. Arvizu for atrial fibrillation. He has been managed on rate control strategy with metoprolol succinate 50 mg twice daily. Lately patient has been having more PVCs and PACs. For this he saw Dr. Arvizu on Wednesday. No changes to the medications were performed. Patient was performing some exercise yesterday. After exercise when he returned back home he started having symptoms of palpitations. He checked his heart rate with [email or web address] mobile device at home and it reported atrial fibrillation. Therefore he presented to the hospital. He denies any chest pain chest pressure. He denies any palpitation at moment BP 120/63, heart rate 60 bpm Admission ECG shows sinus rhythm, Q waves inferior lead, Repeat ECG at 183 shows A-fib RVR heart rate 125 bpm Repeat ECG 1931 shows sinus rhythm, Q waves inferior lead Labs showed hemoglobin 14.3, BUN 34, creatinine 1.2, troponin elevated at 0.05 with a flat pattern. TSH 1.3, magnesium 2.3, potassium 4 home Medications aspirin, Lipitor, Eliquis, levothyroxine 150, lisinopril 40, HCTZ 12.5, metoprolol 50 mg twice daily. REVIEW OF SYSTEMS 14 point review of system is negative except what is mentioned above in HPI. PHYSICAL EXAMINATION Vital signs reviewed. Head: Normocephalic. Eyes: Sclerae nonicteric. Neck: Brisk carotid upstroke, no jugular venous distention. Lungs: Clear to auscultation. Heart: Regular rate and rhythm, S1-S2, no S3, no murmur or rub. Abdomen: Soft nontender, positive bowel sounds. Extremities: No edema, intact distal pulses. Neuro: Alert, oritented, no focal deficits. Detailed neuro exam was not performed. ASSESSMENT Paroxysmal atrial fibrillation CAD status post PCI long time ago. Recent cardiac catheterization in October did not show any major obstructive coronary artery disease. He was told that he has moderate small vessel disease. This heart cath was done because of an abnormal stress test. PLAN Patient symptoms of palpitation most like related to paroxysmal atrial fibrillation. I would recommend him to be started on antiarrhythmic medication and may be considered for an ablation procedure if he continues to have symptoms. I offered him to be started on amiodarone. He is not willing to start the medication because of side effects. He would like to follow-up with his primary bridge painter. I would start him on Cardizem 60 mg short acting to be used as needed if he has symptoms of palpitations. I recommend him to maintain good hydration that day and relax in the bed after taking the Cardizem. Continue other cardiac medication without any changes. Monitor blood pressure and heart rate at home. Patient is cleared from cardiac standpoint otherwise. Benjmain Rivera MD, FAC, RPVI Thank you for allowing [facility] to participate in this patient's care. Feel free to reach out in case of any followup questions. Past Medical History Past Medical History: Atrial Fibrillation, Hypertension, Prostate Disorder, Thyroid Disorder Additional Past Medical History / Comment(s): FREQUENT PVCS, hypothyroid, genital herpes History of Any Multi-Drug Resistant Organisms: None Reported Past Surgical History: Heart Catheterization With Stent, Orthopedic Surgery, Tonsillectomy Additional Past Surgical History / Comment(s): knee,shoulder, and wrist Past Anesthesia/Blood Transfusion Reactions: No Reported Reaction Date of Last Stent Placement:: 1998 Past Psychological History: No Psychological Hx Reported Smoking Status: Former smoker Past Alcohol Use History: None Reported Past Drug Use History: None Reported - Past Family History Mother Family Medical History: Asthma, COPD, Coronary Artery Disease (CAD), Diabetes Mellitus Additional Family Medical History / Comment(s): at 75yrs old, polyps in colon, colostomy bag Father Family Medical History: Myocardial Infarction ([place]) Additional Family Medical History / Comment(s): with a heart attack Medications and Allergies Home Medications Medication Instructions Recorded Confirmed Type Aspirin 81 mg PO DAILY 08/28/13 01/02/24 History Metoprolol Succinate [Toprol XL] 50 mg PO BID 08/28/13 01/02/24 History Potassium Gluconate [Potassium 99 mg PO DAILY 12/14/13 01/02/24 History Gluconate ER] Atorvastatin [Lipitor] 40 mg PO DAILY 09/29/22 01/02/24 History Levothyroxine Sodium [Synthroid] 150 mcg PO HS 09/29/22 01/02/24 History Lisinopril-Hctz 20-12.5 mg 1 tab PO BID 09/29/22 01/02/24 History [Zestoretic 20-12.5] Magnesium Oxide [Magnesium] 500 mg PO DAILY 09/29/22 01/02/24 History Apixaban [Eliquis] 5 mg PO BID #60 tab 10/01/22 01/02/24 Rx Meclizine [Antivert] 25 mg PO TID PRN 01/02/24 01/02/24 History Vitamin D3(Unknown Dose) 1 tab PO DAILY 01/02/24 01/02/24 History valACYclovir HCL [Valtrex] 500 mg PO BID PRN 01/02/24 01/02/24 History Allergies Allergy/AdvReac Type Severity Reaction Status Date / Time No Known Allergies Allergy Verified 01/02/24 08:59 Physical Exam Vitals: Vital Signs Temp Pulse Pulse Resp BP Pulse Ox 01/02/24 09:00 98.2 F 65 18 162/77 98 01/02/24 06:16 58 L 14 98 01/02/24 04:09 98.3 F 60 15 120/58 95 01/02/24 00:51 98.1 F 67 17 120/63 95 01/01/24 22:00 67 15 95 01/01/24 19:25 98.2 F 79 16 122/77 97 01/01/24 18:41 140 H 16 119/75 97 01/01/24 18:30 80 01/01/24 17:10 98.1 F 86 18 117/76 95 Intake and Output 01/01/24 01/02/24 01/02/24 22:59 06:59 14:59 Other: Weight 110.223 kg Results 01/02/24 07:09 01/02/24 07:09 Cardiac Enzymes 01/01/24 01/01/24 01/01/24 Range/Units 18:17 18:17 21:25 AST 22 (17-59) U/L Troponin I 0.054 H* 0.060 H* (0.000-0.034) ng/mL 01/01/24 Range/Units 23:54 AST (17-59) U/L Troponin I 0.056 H* (0.000-0.034) ng/mL Coagulation 01/01/24 Range/Units 18:17 PT 11.3 (10.0-12.5) sec APTT 25.4 (22.0-30.0) sec CBC 01/01/24 01/02/24 Range/Units 18:17 07:09 WBC 11.3 H 9.8 (3.8-10.6) k/uL RBC 4.34 4.22 L (4.30-5.90) m/uL Hgb 14.3 13.7 (13.0-17.5) gm/dL Hct 42.9 41.2 (39.0-53.0) % Plt Count 154 137 L (150-450) k/uL Comprehensive Metabolic Panel 01/01/24 01/02/24 Range/Units 18:17 07:09 Sodium 137 136 L (137-145) mmol/L Potassium 4.1 4.0 (3.5-5.1) mmol/L Chloride 102 100 (98-107) mmol/L Carbon Dioxide 30 31 H (22-30) mmol/L BUN 32 H 26 H (9-20) mg/dL Creatinine 1.23 1.05 (0.66-1.25) mg/dL Glucose 98 110 H (74-99) mg/dL Calcium 9.2 9.0 (8.4-10.2) mg/dL AST 22 (17-59) U/L ALT 24 (4-49) U/L Alkaline Phosphatase 76 (38-126) U/L Total Protein 7.2 (6.3-8.2) g/dL Albumin 4.3 (3.5-5.0) g/dL Current Medications Generic Name Dose Route Start Last Admin Trade Name Freq PRN Reason Stop Dose Admin Apixaban 5 mg 01/01/24 21:00 01/02/24 09:24 Apixaban 5 Mg Tab PO 5 mg BID KEVON Administration Protocol Aspirin 81 mg 01/02/24 09:00 01/02/24 09:25 Aspirin 81 Mg PO 81 mg DAILY KEVON Administration Atorvastatin Calcium 40 mg 01/02/24 09:00 01/02/24 09:24 Atorvastatin 40 Mg Tab PO 40 mg DAILY KEVON Administration Lisinopril/HCTZ 1 each 01/02/24 09:30 01/02/24 09:25 Lisinopril-Hctz 20-12.5 Mg 1 Each Tab PO 1 each BID KEVON Administration Diltiazem HCl 125 mg/ Sodium 125 mls @ 5 mls/hr 01/01/24 19:00 01/01/24 19:41 Chloride IV Not Given .Q24H KEVON 5 MG/HR Levothyroxine Sodium 150 mcg 01/02/24 21:00 Levothyroxine 75 Mcg Tab PO HS KEVON Magnesium Oxide 400 mg 01/02/24 09:00 01/02/24 09:25 Magnesium Oxide 400 Mg Tab PO 400 mg DAILY KEVON Administration Metoprolol Succinate 50 mg 01/01/24 21:00 01/02/24 09:24 Metoprolol Succinate (Er) 50 Mg Tab.Er.24h PO 50 mg BID KEVON Administration Naloxone HCl 0.2 mg 01/01/24 19:54 Naloxone 0.4 Mg/Ml 1 Ml Vial IV Q2M PRN Opioid Reversal Intake and Output 01/01/24 01/02/24 01/02/24 22:59 06:59 14:59 Other: Weight 110.223 kg 01/02/24 07:09 01/02/24 07:09
[2024-01-02] MEDS ORDERED: DILTIAZEM ORAL 60 MG TAB PO PRN (11:53)
--- NOTE | 2024-01-02 13:31 | P.HPIM ---
History of Present Illness H&P Date: 01/02/24 Chief Complaint: Palpitations 73-year-old male with past medical history of A-fib who presents emergency department with rapid heart rate. States that over the past week he has had episodes of palpitations. He does follow with a paramedical aide out of [facility]. States that he made an appointment with his paramedical aide. Patient was in a normal sinus rhythm. He also has had a heart cath within the past 6 weeks. He does have 1 stent. His recent cath was negative. Patient admits that tonight he felt his heart really start racing and this is what prompted him to c ome into the emergency department. He denies any recent medication changes. No recent illnesses. He does take all of his medications as directed without any missed doses. Patient is on anticoagulation. He denies any chest pain. Mild associated difficulty breathing. No abdominal pain. No numbness, tingling or weakness in his extremities. No other alleviating, precipitating or modifying factors Admission ECG shows sinus rhythm, Q waves inferior lead, Repeat ECG at 1832 shows A-fib RVR heart rate 125 bpm Repeat ECG 193 shows sinus rhythm, Q waves inferior lead Labs showed hemoglobin 14.3, BUN 34, creatinine 1.2, troponin elevated at 0.05 with a flat pattern. TSH 1.3, magnesium 2.3, potassium 4 Review of Systems REVIEW OF SYSTEMS: CONSTITUTIONAL: No fever, no malaise, no fatigue. HEENT: No recent visual problems or hearing problems. Denied any sore throat. CARDIOVASCULAR: No chest pain, orthopnea, PND, no palpitations, no syncope. PULMONARY: No shortness of breath, no cough, no hemoptysis. GASTROINTESTINAL: No diarrhea, no nausea, no vomiting, no abdominal pain. NEUROLOGICAL: No headaches, no weakness, no numbness. HEMATOLOGICAL: Denies any bleeding or petechiae. GENITOURINARY: Denies any burning micturition, frequency, or urgency. MUSCULOSKELETAL/RHEUMATOLOGICAL: Denies any joint pain, swelling, or any muscle pain. ENDOCRINE: Denies any polyuria or polydipsia. The rest of the 14-point review of systems is negative. Past Medical History Past Medical History: Atrial Fibrillation, Hypertension, Prostate Disorder, Thyroid Disorder Additional Past Medical History / Comment(s): FREQUENT PVCS, hypothyroid, genital herpes History of Any Multi-Drug Resistant Organisms: None Reported Past Surgical History: Heart Catheterization With Stent, Orthopedic Surgery, Tonsillectomy Additional Past Surgical History / Comment(s): knee,shoulder, and wrist Past Anesthesia/Blood Transfusion Reactions: No Reported Reaction Date of Last Stent Placement:: 1998 Past Psychological History: No Psychological Hx Reported Smoking Status: Former smoker Past Alcohol Use History: None Reported Past Drug Use History: None Reported - Past Family History Mother Family Medical History: Asthma, COPD, Coronary Artery Disease (CAD), Diabetes Mellitus Additional Family Medical History / Comment(s): at 75yrs old, polyps in colon, colostomy bag Father Family Medical History: Myocardial Infarction (ND) Additional Family Medical History / Comment(s): with a heart attack Medications and Allergies Home Medications Medication Instructions Recorded Confirmed Type Aspirin 81 mg PO DAILY 08/28/13 01/02/24 History Metoprolol Succinate [Toprol XL] 50 mg PO BID 08/28/13 01/02/24 History Potassium Gluconate [Potassium 99 mg PO DAILY 12/14/13 01/02/24 History Gluconate ER] Atorvastatin [Lipitor] 40 mg PO DAILY 09/29/22 01/02/24 History Levothyroxine Sodium [Synthroid] 150 mcg PO HS 09/29/22 01/02/24 History Lisinopril-Hctz 20-12.5 mg 1 tab PO BID 09/29/22 01/02/24 History [Zestoretic 20-12.5] Magnesium Oxide [Magnesium] 500 mg PO DAILY 09/29/22 01/02/24 History Apixaban [Eliquis] 5 mg PO BID #60 tab 10/01/22 01/02/24 Rx Diltiazem Oral [Cardizem*] 60 mg PO TID PRN 30 Days #60 tab 01/02/24 Rx Meclizine [Antivert] 25 mg PO TID PRN 01/02/24 01/02/24 History Vitamin D3(Unknown Dose) 1 tab PO DAILY 01/02/24 01/02/24 History valACYclovir HCL [Valtrex] 500 mg PO BID PRN 01/02/24 01/02/24 History Allergies Allergy/AdvReac Type Severity Reaction Status Date / Time No Known Allergies Allergy Verified 01/02/24 08:59 Physical Exam Vitals: Vital Signs Temp Pulse Pulse Resp BP Pulse Ox 01/02/24 09:00 98.2 F 65 18 162/77 98 01/02/24 06:16 58 L 14 98 01/02/24 04:09 98.3 F 60 15 120/58 95 01/02/24 00:51 98.1 F 67 17 120/63 95 01/01/24 22:00 67 15 95 01/01/24 19:25 98.2 F 79 16 122/77 97 01/01/24 18:41 140 H 16 119/75 97 01/01/24 18:30 80 01/01/24 17:10 98.1 F 86 18 117/76 95 Intake and Output 01/01/24 01/02/24 01/02/24 22:59 06:59 14:59 Other: Weight 110.223 kg General appearance: alert, in no apparent distress Head exam: Present: atraumatic, normocephalic, normal inspection Eye exam: Present: normal appearance, PERRL, EOMI. Absent: scleral icterus, conjunctival injection, periorbital swelling ENT exam: Present: normal exam, mucous membranes moist Neck exam: Present: normal inspection. Absent: tenderness, meningismus, lymphadenopathy Respiratory exam: Present: normal lung sounds bilaterally. Absent: respiratory distress, wheezes, rales, rhonchi, stridor Cardiovascular Exam: Present: tachycardia, irregular rhythm, normal heart sounds. Absent: systolic murmur, diastolic murmur, rubs, gallop, clicks GI/Abdominal exam: Present: soft, normal bowel sounds. Absent: distended, tenderness, guarding, rebound, rigid Extremities exam: Present: normal inspection, full ROM, normal capillary refill. Absent: tenderness, pedal edema, joint swelling, calf tenderness Back exam: Present: normal inspection Neurological exam: Present: alert, oriented X3, CN II-XII intact Psychiatric exam: Present: normal affect, normal mood Skin exam: Present: warm, dry, intact, normal color. Absent: rash Results CBC & Chem 7: 01/02/24 07:09 01/02/24 07:09 Labs: Abnormal Lab Results - Last 24 Hours (Table) 01/01/24 01/01/24 01/01/24 Range/Units 18:17 18:17 18:17 WBC 11.3 H (3.8-10.6) k/uL RBC (4.30-5.90) m/uL Plt Count (150-450) k/uL Neutrophils # 8.3 H (1.3-7.7) k/uL Sodium (137-145) mmol/L Carbon Dioxide (22-30) mmol/L BUN 32 H (9-20) mg/dL Glucose (74-99) mg/dL Troponin I 0.054 H* (0.000-0.034) ng/mL 01/01/24 01/01/24 01/02/24 Range/Units 21:25 23:54 07:09 WBC (3.8-10.6) k/uL RBC 4.22 L (4.30-5.90) m/uL Plt Count 137 L (150-450) k/uL Neutrophils # (1.3-7.7) k/uL Sodium (137-145) mmol/L Carbon Dioxide (22-30) mmol/L BUN (9-20) mg/dL Glucose (74-99) mg/dL Troponin I 0.060 H* 0.056 H* (0.000-0.034) ng/mL 01/02/24 Range/Units 07:09 WBC (3.8-10.6) k/uL RBC (4.30-5.90) m/uL Plt Count (150-450) k/uL Neutrophils # (1.3-7.7) k/uL Sodium 136 L (137-145) mmol/L Carbon Dioxide 31 H (22-30) mmol/L BUN 26 H (9-20) mg/dL Glucose 110 H (74-99) mg/dL Troponin I (0.000-0.034) ng/mL Assessment and Plan Assessment: 1. Paroxysmal atrial fibrillation with RVR -Patient was placed on IV Cardizem infusion in ED; currently normal sinus rhythm -We will admit to telemetry; monitor EKG and trend troponin -Patient remains on Eliquis and metoprolol 50 mg twice daily -Recommend 2D echo -Cardiology is consulted; she had recommendations 2. Mild JEFFRY; patient received IV fluids in ED; repeat blood work is improved; we will continue to monitor strict BILLY's, daily weights, renal function electrolytes; avoid nephrotoxins and hypotension 3. Coronary artery disease; patient reports PCI long time ago; status post cardiac catheterization in October which did not reveal any major obstructive CAD 4. Hypertension; metoprolol 50 mg twice daily; lisinoprilHCTZ twice daily 5. Hyperlipidemia; total 40 mg daily DVT prophylaxis; SCD/Eliquis CODE STATUS; full code
--- NOTE | 2024-01-02 13:34 | P.DS ---
Providers Date of admission: 01/01/24 19:56 Expected date of discharge: 01/02/24 Attending physician: Yvette Byers MD Consults: 01/01/24 19:54 Consult Physician Urgent Consulting Provider: [facility] Reason/Comments: afib with rvr, elevated trop Do you want consulting provider notified?: Yes Primary care physician: [facility] Course: 73-year-old male with past medical history of A-fib who presents emergency department with rapid heart rate. States that over the past week he has had episodes of palpitations. He does follow with a skinner pelts out of [facility]. States that he made an appointment with his skinner pelts. Patient was in a normal sinus rhythm. He also has had a heart cath within the past 6 weeks. He does have 1 stent. His recent cath was negative. Patient admits that tonight he felt his heart really start racing and this is what prompted him to come into the emergency department. He denies any recent medication changes. No recent illnesses. He does take all of his medications as directed without any missed doses. Patient is on anticoagulation. He denies any chest pain. Mild associated difficulty breathing. No abdominal pain. No numbness, tingling or weakness in his extremities. No other alleviating, precipitating or modifying factors Admission ECG shows sinus rhythm, Q waves inferior lead, Repeat ECG at 183 shows A-fib RVR heart rate 125 bpm Repeat ECG 1931 shows sinus rhythm, Q waves inferior lead Labs showed hemoglobin 14.3, BUN 34, creatinine 1.2, troponin elevated at 0.05 with a flat pattern. TSH 1.3, magnesium 2.3, potassium 4 1. Paroxysmal atrial fibrillation with RVR -Patient was placed on IV Cardizem infusion in ED; currently normal sinus rhythm -We will admit to telemetry; monitor EKG and trend troponin -Patient remains on Eliquis and metoprolol 50 mg twice daily -Recommend 2D echo -Cardiology is consulted; she had recommendations 2. Mild JEFFRY; patient received IV fluids in ED; repeat blood work is improved; we will continue to monitor strict BILLY's, daily weights, renal function electrolytes; avoid nephrotoxins and hypotension 3. Coronary artery disease; patient reports PCI long time ago; status post cardiac catheterization in October which did not reveal any major obstructive CAD 4. Hypertension; metoprolol 50 mg twice daily; lisinoprilHCABNER 2011.51 twice daily 5. Hyperlipidemia; total 40 mg daily Cardiology evaluated patient and discussed antiarrhythmic therapy with patient but was deferred to primary solutions sales executive upon patient's request; patient will be placed on Cardizem 60 mg 3 times daily as needed and follow-up with primary cardiology team Patient Condition at Discharge: Stable Plan - Discharge Summary New Discharge Prescriptions: New Diltiazem Oral [Cardizem*] 60 mg PO TID PRN 30 Days #60 tab PRN Reason: Cardiac Arrhythmia Continue Aspirin 81 mg PO DAILY Metoprolol Succinate [Toprol XL] 50 mg PO BID Potassium Gluconate [Potassium Gluconate ER] 99 mg PO DAILY Levothyroxine Sodium [Synthroid] 150 mcg PO HS Magnesium Oxide [Magnesium] 500 mg PO DAILY valACYclovir HCL [Valtrex] 500 mg PO BID PRN PRN Reason: first sign of skin irritation Vitamin D3(Unknown Dose) 1 tab PO DAILY Meclizine [Antivert] 25 mg PO TID PRN PRN Reason: dizziness Atorvastatin [Lipitor] 40 mg PO DAILY Lisinopril-Hctz 20-12.5 mg [Zestoretic 20-12.5] 1 tab PO BID Apixaban [Eliquis] 5 mg PO BID #60 tab Discharge Medication List Aspirin 81 mg PO DAILY 08/28/13 [History] Metoprolol Succinate [Toprol XL] 50 mg PO BID 08/28/13 [History] Potassium Gluconate [Potassium Gluconate ER] 99 mg PO DAILY 12/14/13 [History] Atorvastatin [Lipitor] 40 mg PO DAILY 09/29/22 [History] Levothyroxine Sodium [Synthroid] 150 mcg PO HS 09/29/22 [History] Lisinopril-Hctz 20-12.5 mg [Zestoretic 20-12.5] 1 tab PO BID 09/29/22 [History] Magnesium Oxide [Magnesium] 500 mg PO DAILY 09/29/22 [History] Apixaban [Eliquis] 5 mg PO BID #60 tab 10/01/22 [Rx] Diltiazem Oral [Cardizem*] 60 mg PO TID PRN 30 Days #60 tab 01/02/24 [Rx] Meclizine [Antivert] 25 mg PO TID PRN 01/02/24 [History] Vitamin D3(Unknown Dose) 1 tab PO DAILY 01/02/24 [History] valACYclovir HCL [Valtrex] 500 mg PO BID PRN 01/02/24 [History] Follow up Appointment(s)/Referral(s): Curtis Camargo DO [Primary Care Provider] - 1-2 days Discharge Disposition: HOME SELF-CARE
[2024-01-02 15:12] VITALS: BP 122/72; PULSE 59; RESP 17; TEMP 98.3
[2024-01-02] MEDS ORDERED: LEVOTHYROXINE 75 MCG TAB PO SCH (21:00)
== END 2024-01-02 15:00 | disposition home or self-care (01) ==
LOC: EC 16:58 → 3SCARD 19:56
PROVIDERS: ADMIT Internal Medicine; ATTEND Internal Medicine
DX: I48.0 Paroxysmal atrial fibrillation (principal); N17.9 Acute kidney failure, unspecified; E03.9 Hypothyroidism, unspecified; I10 Essential (primary) hypertension; I25.10 Atherosclerotic heart disease of native coronary artery without angina pectoris; E78.5 Hyperlipidemia, unspecified; Z87.891 Personal history of nicotine dependence; Z98.61 Coronary angioplasty status; Z79.01 Long term (current) use of anticoagulants; Z79.82 Long term (current) use of aspirin; Z79.890 Hormone replacement therapy; Z79.899 Other long term (current) drug therapy; Z82.49 Family history of ischemic heart disease and other diseases of the circulatory system
CPT/HCPCS: 99285; 36415; 93005; 80053; 80048; 84443; 83735; 84484; 85025 ×2; 85610; 85730; 71046; G0378 ×2